=== PATIENT | female | born 2000 | race Caucasian/White ===

== ENCOUNTER 2020-07-31 23:00 | Emergency (ER) | payer OTHER ==
--- NOTE | 2020-07-31 23:09 | ERPHSYRPT ---
- History of Present Illness Time Seen by Provider: 07/31/20 23:09 Source: patient Exam Limitations: no limitations Physician History: This is a 20-year-old white female who attempted to forte her own earlobes 5 days ago. They were left in place over the 5 days and infection set in. She took her piercings out prior to arrival to the emergency department. She denies fevers. She has no known drug allergies. Timing/Duration: gradual onset Severity: mild ENT Location: ear (R), ear (L) Prearrival Treatment: no prearrival treatment Modifying Factors: Improves With: nothing Associated Symptoms: ear pain (R) (Earlobe), ear pain (L) (Earlobe) Allergies/Adverse Reactions: No Known Drug Allergies Allergy (Verified 07/31/20 23:24) Travel Risk - International Travel Have you traveled outside of the country in past 3 weeks: No - Coronavirus Screening Are you exhibiting any of the following symptoms?: No Close contact with a COVID-19 positive Pt in past 14-21 Days: No - Vaccine Status Have you recieved a Covid-19 vaccination: No - Review of Systems Constitutional: No Symptoms Eyes: No Symptoms Ears, Nose, & Throat: No Symptoms Respiratory: No Symptoms Cardiac: No Symptoms Abdominal/Gastrointestinal: No Symptoms Genitourinary Symptoms: No Symptoms Musculoskeletal: No Symptoms Skin: Cellulitis (Lateral earlobes) Neurological: No Symptoms Psychological: No Symptoms Endocrine: No Symptoms Hematologic/Lymphatic: No Symptoms Immunological/Allergic: No Symptoms All Other Systems: Reviewed and Negative - Past Medical History Pertinent Past Medical History: Yes - Past Surgical History Past Surgical History: Yes - Physical Exam General Appearance: no apparent distress, alert, anxiety Eye Exam: bilateral eye: normal inspection, PERRL, EOMI Ear Exam: bilateral ear: swelling (Earlobe infection with swelling and tenderness), tenderness (See above) Nasal Exam: normal inspection Neck Exam: normal inspection, non-tender, supple, full range of motion, trachea midline Cardiovascular/Respiratory Exam: chest non-tender, no respiratory distress Abdominal Exam: non-tender Neurologic Exam: alert, oriented x 3, 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 See above) SpO2 Interpretation: normal O2 Delivery: Room Air - Course Nursing assessment & vital signs reviewed: Yes Ordered Tests: Medication Summary Generic Name Dose Route Start Last Admin Trade Name Barby PRN Reason Stop Dose Admin Ceftriaxone Sodium 1,000 mg 07/31/20 23:21 Rocephin 1000 Mg Inj IM 07/31/20 23:22 STAT ONE - Progress Progress: unchanged Counseled pt/family regarding: diagnosis, need for follow-up - Departure Departure Disposition: Home Clinical Impression: Cellulitis of both ears Condition: Stable Critical Care Time: No Additional Instructions: Keep sites clean daily with soap and water and once a day hydrogen peroxide. Do not place piercings in either ear for several weeks. Take medication as prescribed. Follow-up with your primary care physician for further management. Prescriptions: Smz/Tmp Ds Tablet [Bactrim Ds Tablet] 1 udtab PO BID #14 tablet
[2020-07-31] MEDS ORDERED: Rocephin 1000 MG INJ IM ONE (23:21)
[2020-07-31] MEDS ORDERED: Rocephin 1000 MG INJ ONE (23:23)
[2020-07-31] MEDS ORDERED: XYLOCAINE 1% HCL 20 ML MDV ONE (23:24)
[2020-07-31 23:51] VITALS: BP 114/75; PULSE 71; O2SAT 100
== END 2020-07-31 23:50 | disposition home or self-care (01) ==
LOC: ED 23:00
DX: H60.13 Cellulitis of external ear, bilateral (principal)
CPT/HCPCS: 96372; 99283; J0696

== ENCOUNTER 2020-10-17 10:37 | Emergency (ER) | payer OTHER ==
--- NOTE | 2020-10-17 10:39 | ERPHSYRPT ---
- History of Present Illness Time Seen by Provider: 10/17/20 10:39 Source: patient, family Exam Limitations: no limitations Physician History: This is a 20-year-old white female who does not smoke cigarettes and is not exposed to any type of cigarette smoke or other type of smoke on a chronic basis and presents with coughing and intermittent wheezing over the last one and half to 2 days. She also feels a little tickling in her throat. She has not had a fever. She had no nausea vomiting or diarrhea. She does complain of headache because she has been coughing relatively frequently over the last 2 days. Timing/Duration: day(s) (Two) Cough Quality/Degree: moderate, dry cough Possible Cause: no prior episodes Modifying Factors: Improves With: nothing Associated Symptoms: cough, headache, wheezing Allergies/Adverse Reactions: No Known Drug Allergies Allergy (Verified 10/17/20 11:08) Home Medications: norgestimate-ethinyl estradioL [Vlj-Fk-Fgnyqw Tablet] 1 each PO DAILY 10/17/20 [History] Hx Tetanus, Diphtheria Vaccination/Date Given: No Hx Influenza Vaccination/Date Given: No Hx Pneumococcal Vaccination/Date Given: No Travel Risk - International Travel Have you traveled outside of the country in past 3 weeks: No - Coronavirus Screening Are you exhibiting any of the following symptoms?: No Close contact with a COVID-19 positive Pt in past 14-21 Days: No - Vaccine Status Have you recieved a Covid-19 vaccination: No - Review of Systems Constitutional: No Symptoms Eyes: No Symptoms Ears, Nose, & Throat: No Symptoms Respiratory: Cough, Wheezing, No Dyspnea Cardiac: No Symptoms Abdominal/Gastrointestinal: No Symptoms Genitourinary Symptoms: No Symptoms Musculoskeletal: No Symptoms Skin: No Symptoms Neurological: Headache Psychological: No Symptoms Endocrine: No Symptoms Hematologic/Lymphatic: No Symptoms Immunological/Allergic: No Symptoms All Other Systems: Reviewed and Negative - Past Medical History Pertinent Past Medical History: Yes - Past Surgical History Past Surgical History: Yes - Social History Smoking Status: Never smoker Exposure to second hand smoke: No Drug Use: none Patient Lives Alone: No - Nursing Vital Signs Nursing Vital Signs: Initial Vital Signs Temperature 97.8 F 10/17/20 10:57 Pulse Rate 80 10/17/20 10:57 Respiratory Rate 18 10/17/20 10:57 Blood Pressure 111/67 10/17/20 10:57 O2 Sat by Pulse Oximetry 97 10/17/20 10:57 Pain Scale Pain Intensity 7 - Physical Exam General Appearance: no apparent distress, alert, anxiety, obese Eye Exam: PERRL/EOMI, eyes nml inspection Ears, Nose, Throat Exam: normal ENT inspection, moist mucous membranes Neck Exam: normal inspection, non-tender, supple, full range of motion Respiratory Exam: normal breath sounds, lungs clear, airway intact, No chest tenderness, No respiratory distress Cardiovascular Exam: regular rate/rhythm, normal heart sounds, normal peripheral pulses Gastrointestinal/Abdomen Exam: soft, normal bowel sounds, No tenderness, No guarding Pelvic Exam: not done Rectal Exam: not done Back Exam: normal inspection, normal range of motion, No CVA tenderness, No vertebral tenderness Extremity Exam: normal inspection, normal range of motion, pelvis stable Neurologic Exam: alert, oriented x 3, 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, 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, normal mood/affect, nml cerebellar function, nml station & gait, sensation nml Skin Exam: normal color, warm, dry Lymphatic Exam: No adenopathy SpO2 Interpretation: normal O2 Delivery: Room Air - Course Nursing assessment & vital signs reviewed: Yes - Progress Progress: unchanged Air Movement: good Blood Culture(s) Obtained: No Antibiotics given: No Counseled pt/family regarding: diagnosis, need for follow-up - Departure Departure Disposition: Home Clinical Impression: Bronchitis Condition: Stable Critical Care Time: No Referrals: DOCTOR,NO FAMILY [Primary Care Provider] - Additional Instructions: Drink plenty of fluids. Avoid exposure to any type of smoke. Take your medication as prescribed. Follow-up with your primary care physician for persistent symptoms. Forms: Work/School Release Form Prescriptions: Hydrocodone/Acetaminophen [Hydrocodone-Acetamn 7.5-325/15] 10 ml PO Q8H PRN PRN #120 solution MDD 30 ml PRN Reason: Cough Prednisone 10 mg [Deltasone 10 mg] 10 mg PO TID #12 tablet Azithromycin 250 mg [Zithromax 250 MG TABLET] 250 mg PO ZPACK #6 tablet
[2020-10-17 10:59] VITALS: O2SAT 97
[2020-10-17 11:33] VITALS: BP 101/84; PULSE 84
== END 2020-10-17 11:33 | disposition home or self-care (01) ==
LOC: ED 10:37
DX: J40 Bronchitis, not specified as acute or chronic (principal); R05 Cough; R51.9 Headache, unspecified; R06.2 Wheezing
CPT/HCPCS: 99283

== ENCOUNTER 2022-01-26 18:08 | Emergency (ER) | payer OTHER ==
[2022-01-26 18:31] VITALS: BP 125/90
[2022-01-26 18:45] LABS: Appearance SLIGHTLY CLOUDY (CLEAR); Bilirubin NEGATIVE (NEGATIVE); Glucose NEGATIVE (NEGATIVE); Ketones NEGATIVE (NEGATIVE); Specific Gravity 1.025 (1.005-1.025)
[2022-01-26 18:46] LABS: Crystals Unidentified 25-50 /HPF (NEGATIVE); Dipstick done @ ? MAIN LAB; Epithelial Cells RARE /HPF (FEW); Mucus SLIGHT /HPF (NEGATIVE); Nitrite NEGATIVE (NEGATIVE); Protein,Urine Dip 30 (Negative); RBC SMALL Ery/ul (0-5); Urobilinogen 0.2 mg/dL (0-1); WBC 26-50 /HPF (0-5)
[2022-01-26 18:48] LABS: Amourphous Crystal FEW /HPF (NEGATIVE); Bacteria RARE /HPF (NEGATIVE)
[2022-01-26 18:51] LABS: Urine Cultured Indicated? YES
[2022-01-26] MEDS ORDERED: TORAdol 30 mg Injection IM ONE (19:20)
[2022-01-26] MEDS ORDERED: BACTRIM DS TABLET PO ONE ×2 (19:20→19:24)
[2022-01-26] MEDS ORDERED: TORAdol 30 mg Injection ONE (19:24)
--- NOTE | 2022-01-26 19:26 | ERPHSYRPT ---
- History of Present Illness Time Seen by Provider: 01/26/22 18:16 Source: patient Exam Limitations: no limitations Patient Subjective Stated Complaint: pt reports burning with urination and frequency. pt states she also has lower back pain. Triage Nursing Assessment: pt is aox3, pupils perrl, afebrile, resps easy and non labored, cap refill < 3 seconds, radial pulses strong and equal, pt skin pink warm dry. Timing/Duration: day(s) (3), gradual onset, worse Activites at Onset: none Quality: sharpness Onset Location: suprapubic, urethral Pain Radiation: urethral Severity of Pain-Max: moderate Severity of Pain-Current: moderate Modifying Factors: Worsens With: urinating Associated Symptoms: dysuria, urinary frequency Allergies/Adverse Reactions: No Known Drug Allergies Allergy (Verified 01/26/22 18:31) Home Medications: norgestimate-ethinyl estradioL [Nyf-Nh-Qgspsp Tablet] 1 each PO DAILY 10/17/20 [History] Hx Tetanus, Diphtheria Vaccination/Date Given: Yes Hx Influenza Vaccination/Date Given: No Hx Pneumococcal Vaccination/Date Given: No Travel Risk - International Travel Have you traveled outside of the country in past 3 weeks: No - Coronavirus Screening Are you exhibiting any of the following symptoms?: No Close contact with a COVID-19 positive Pt in past 14-21 Days: No - Vaccine Status Have you recieved a Covid-19 vaccination: Yes 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[employer] - Vaccination Dates Date of 2cond Vaccination (if applicable): UNK - Review of Systems Constitutional: No Symptoms Eyes: No Symptoms Respiratory: No Symptoms Cardiac: No Symptoms Abdominal/Gastrointestinal: No Symptoms Genitourinary Symptoms: Dysuria, Frequency, Hematuria Musculoskeletal: Back Pain Skin: No Symptoms Neurological: No Symptoms Endocrine: No Symptoms Hematologic/Lymphatic: No Symptoms Immunological/Allergic: No Symptoms - Past Medical History Pertinent Past Medical History: Yes - Past Surgical History Past Surgical History: No - Social History Smoking Status: Never smoker Exposure to second hand smoke: No Drug Use: none Patient Lives Alone: No - Female History Hx Last Menstrual Period: 01/08/22 Hx Now: No (UNK) - Nursing Vital Signs Nursing Vital Signs: Initial Vital Signs Temperature 97.8 F 01/26/22 18:19 Pulse Rate 72 01/26/22 18:19 Respiratory Rate 18 01/26/22 18:19 Blood Pressure 125/90 01/26/22 18:19 O2 Sat by Pulse Oximetry 99 01/26/22 18:19 Pain Scale Pain Intensity 10 - Physical Exam General Appearance: no apparent distress, alert Eye Exam: PERRL/EOMI Ears, Nose, Throat Exam: normal ENT inspection Neck Exam: normal inspection, supple, full range of motion Respiratory Exam: normal breath sounds, lungs clear Cardiovascular Exam: regular rate/rhythm, normal heart sounds Gastrointestinal/Abdomen Exam: soft, normal bowel sounds, tenderness (mild suprapubic ) Back Exam: normal inspection, normal range of motion, No CVA tenderness Extremity Exam: normal inspection, normal range of motion Neurologic Exam: alert, oriented x 3, cooperative Skin Exam: normal color SpO2 Interpretation: normal SpO2: 99 O2 Delivery: Room Air Ordered Tests: Active Orders 24 hr Category Date Time Status CULTURE,URINE Stat Lab 01/26/22 18:35 Received HCG,QUALITATIVE URINE Stat Lab 01/26/22 19:01 Completed UA W/RFX CULTURE Stat Lab 01/26/22 18:35 Completed Lab/Rad Data: Laboratory Results 01/26/22 01/26/22 Range/Units 19:01 18:35 Urinalys Dipstick Clnc MAIN LAB Urine Color YELLOW (YELLOW) Urine Appearance SLIGHTLY CLOUDY (CLEAR) Urine pH 7.0 (5-6) Ur Specific Daisy 1.025 (1.005-1.025) POC Urine Protein Conf 30 (Negative) Urine Ketones NEGATIVE (NEGATIVE) Urine Nitrite NEGATIVE (NEGATIVE) Urine Bilirubin NEGATIVE (NEGATIVE) Urine Urobilinogen 0.2 (0-1) mg/dL Urine Leukocytes SMALL (NEGATIVE) Urine WBC (Auto) 26-50 (0-5) /HPF Urine RBC (Auto) 16-25 (0-2) /HPF U Epithel Cells (Auto) RARE (FEW) /HPF Urine Bacteria (Auto) RARE (NEGATIVE) /HPF Urine RBC SMALL (0-5) Rashaad/ul Unidentified Crystals 25-50 (NEGATIVE) /HPF Amorphous Crystals FEW (NEGATIVE) /HPF Urine Mucus (Auto) SLIGHT (NEGATIVE) /HPF Ur Culture Indicated? YES Urine Glucose NEGATIVE (NEGATIVE) mg/dL Urine HCG, Qual NEGATIVE (Negative) - Progress Progress: re-examined Air Movement: good Progress Note: 01/26/22 19:23 has UTI , started on bactrim , toradol for symptomatic relief . Blood Culture(s) Obtained: No Antibiotics given: No Counseled pt/family regarding: lab results, diagnosis, need for follow-up - Departure Departure Disposition: Home Clinical Impression: Acute UTI Condition: Stable Critical Care Time: No Referrals: DOCTOR,NO FAMILY [Primary Care Provider] - Follow up/PCP as directed EMIGDIO CHAPARRO DO [ACTIVE STAFF] - Follow up/PCP as directed (2 days for re evaluation ) Instructions: Urinary Tract Infection, Adult (DC) Additional Instructions: take tylenol/ibuprofen for re evaluation. return to ER for any worsening of symptoms like pain/fever /vomiting etc Prescriptions: Ibuprofen 600 mg PO Q6HPRN PRN 10 Days #20 tablet PRN Reason: Pain Smz/Tmp Ds Tablet [Bactrim Ds Tablet] 1 udtab PO BID #14 tablet
[2022-01-26 19:36] VITALS: PULSE 70; O2SAT 100
== END 2022-01-26 19:36 | disposition home or self-care (01) ==
LOC: ED 18:08
DX: N39.0 Urinary tract infection, site not specified (principal); M54.50 Low back pain, unspecified; Z79.899 Other long term (current) drug therapy
CPT/HCPCS: 81015; 81025; 87077; 87086; 87186; 96372; 99283; J1885; A9270-GY

== ENCOUNTER 2022-02-21 18:26 | Emergency (ER) | payer OTHER ==
[2022-02-21 18:40] VITALS: O2SAT 99
--- NOTE | 2022-02-21 19:01 | ERPHSYRPT ---
- History of Present Illness Time Seen by Provider: 02/21/22 18:43 Source: patient Exam Limitations: no limitations Patient Subjective Stated Complaint: C/O cough and sore throat that started yesterday Triage Nursing Assessment: Patient ambulated back to ED without difficulties. NO SOB noted. No cough noted during assessment. Lungs clear. Skin warm and dry. Throat is red. Physician History: 22 years old with history of tobacco use presented to ER with chief complaint of nonproductive cough for quite some time which is worsening since yesterday. At times she noted some soreness/dryness of throat and coughed up some streaks of blood. Reports dryness of throat and hurts to swallow at times as well. No difficulty breathing. No fever or chills reported. Not taking any control pills. No leg swelling. No history of DVT/PE. No chest pain or shortness of breath otherwise. Timing/Duration: yesterday, intermittent, worse Cough Quality/Degree: moderate, dry cough Possible Cause: unknown cause Modifying Factors: Worsens With: coughing Associated Symptoms: cough, muscle aches, nasal drainage, sore throat, No fever, No shortness of breath Allergies/Adverse Reactions: No Known Drug Allergies Allergy (Verified 02/21/22 18:30) Hx Tetanus, Diphtheria Vaccination/Date Given: Yes Hx Influenza Vaccination/Date Given: No Hx Pneumococcal Vaccination/Date Given: No Immunizations Up to Date: Yes Travel Risk - International Travel Have you traveled outside of the country in past 3 weeks: No - Coronavirus Screening Are you exhibiting any of the following symptoms?: Yes Symptoms: Cough: New Onset Close contact with a COVID-19 positive Pt in past 14-21 Days: No - Vaccine Status Have you recieved a Covid-19 vaccination: Yes 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[employer] - Vaccination Dates Date of 2cond Vaccination (if applicable): UNK - Review of Systems Constitutional: No Symptoms Eyes: No Symptoms Ears, Nose, & Throat: Throat Pain, Throat Swelling Respiratory: Cough Cardiac: No Symptoms Abdominal/Gastrointestinal: No Symptoms Genitourinary Symptoms: No Symptoms Musculoskeletal: No Symptoms Neurological: No Symptoms Endocrine: No Symptoms Hematologic/Lymphatic: No Symptoms - Past Medical History Pertinent Past Medical History: Yes Respiratory History: Bronchitis - Past Surgical History Past Surgical History: No - Social History Smoking Status: Never smoker Exposure to second hand smoke: No Drug Use: marijuana Patient Lives Alone: No - Female History Hx Last Menstrual Period: NOW Hx Now: No - Nursing Vital Signs Nursing Vital Signs: Initial Vital Signs Temperature 97.6 F 02/21/22 18:31 Pulse Rate 76 02/21/22 18:31 Respiratory Rate 18 02/21/22 18:31 Blood Pressure 115/81 02/21/22 18:31 O2 Sat by Pulse Oximetry 99 02/21/22 18:31 Pain Scale Pain Intensity 6 - Physical Exam General Appearance: no apparent distress, alert Eye Exam: PERRL/EOMI Ears, Nose, Throat Exam: pharyngeal erythema Neck Exam: normal inspection, non-tender, supple, full range of motion Respiratory Exam: normal breath sounds, lungs clear Cardiovascular Exam: regular rate/rhythm, normal heart sounds Back Exam: normal inspection Extremity Exam: normal inspection, normal range of motion Neurologic Exam: alert, oriented x 3, cooperative Skin Exam: normal color SpO2 Interpretation: normal SpO2: 99 O2 Delivery: Room Air Ordered Tests: Active Orders 24 hr Category Date Time Status CHEST 1 VIEW (PORTABLE) Stat Exams 02/21/22 19:08 Taken Lab/Rad Data: Laboratory Results 02/21/22 Range/Units 18:50 Influenza Type A Ag NEGATIVE (NEGATIVE) Influenza Type B Ag NEGATIVE (NEGATIVE) RSV (PCR) NEGATIVE (Negative) SARS-CoV-2 (PCR) NEGATIVE (NEGATIVE) Group A Strep Antibody NOT DETECTED (NEGATIVE) - Progress Progress: improved Air Movement: good Progress Note: 02/21/22 19:41 22 years old is evaluated for cough with sore throat and a tinge of blood streaking sputum which is minimal. Lungs bilateral clear to auscultation. Chest x-ray no acute cardiopulmonary findings reviewed by me, official report is pending. I believe patient has viral bronchitis, given a shot of steroid. Recommended Tylenol, [id number] cough syrup and outpatient follow-up. We will also give a short course of steroid to go home. Discussed signs symptoms of worsening needing return to ER which she seems understanding. Blood Culture(s) Obtained: No Antibiotics given: No Counseled pt/family regarding: lab results, diagnosis, rad results - Departure Departure Disposition: Home Clinical Impression: Bronchitis Condition: Stable Critical Care Time: No Referrals: DOCTOR,NO FAMILY [Primary Care Provider] - Follow up/PCP as directed SERENITY SKY MD [ACTIVE STAFF] - Follow Up with PCP/3 days Instructions: Cough, Adult (DC) Additional Instructions: Take Tylenol as needed. Follow-up with primary care for reevaluation. Return to ER for worsening cough or if develop fever chills etc. Prescriptions: Prednisone 20 mg [Deltasone 20 mg] 40 mg PO DAILY 5 Days #10 tablet
[2022-02-21 19:22] LABS: Group A Strep NOT DETECTED (NEGATIVE)
[2022-02-21 19:35] LABS: INFLUENZA A NEGATIVE (NEGATIVE); INFLUENZA B NEGATIVE (NEGATIVE); RESPIRATORY SYNCTIAL VIRUS NEGATIVE (Negative); SARS-CoV-2 Xpert Express NEGATIVE (NEGATIVE)
[2022-02-21 19:46] VITALS: BP 105/55; PULSE 72
--- NOTE | 2022-02-22 09:16 | XRAY ---
Indication: Cough. Comparison: None Single PA chest demonstrates normal heart and lungs with incidental tiny left base calcified granuloma. Bony thorax intact with minimal levoscoliosis.
== END 2022-02-21 19:51 | disposition home or self-care (01) ==
LOC: ED 18:26
DX: J20.8 Acute bronchitis due to other specified organisms (principal); R05.9 Cough, unspecified; J02.9 Acute pharyngitis, unspecified; Z79.52 Long term (current) use of systemic steroids
CPT/HCPCS: 0241U; 71045; 87651; 99283

== ENCOUNTER 2022-05-20 17:21 | Emergency (ER) | payer OTHER ==
[2022-05-20 18:23] LABS: Appearance Clear (Clear); Bacteria None Seen /HPF (None Seen); Bilirubin Negative (Negative); Blood Negative (Negative); Epithelial Cells None Seen /HPF (None Seen); Glucose, Urine Negative (Negative); Hyaline Casts NONE SEEN /LPF (0-2); Ketones Negative (Negative); Leukocyte Esterase Negative (Negative); Nitrite Negative (Negative); Ph 5.5 (4.6-8.0); Protein,Urine Dip Negative (Negative); RBC 0-2 /HPF (0-5); Urobilinogen 0.2 mg/dL (0.2); WBC 0-2 /HPF (0-5)
--- NOTE | 2022-05-20 18:24 | ERPHSYRPT ---
- History of Present Illness Time Seen by Provider: 05/20/22 17:50 Source: patient Exam Limitations: no limitations Patient Subjective Stated Complaint: pt here for lower abd pain for an hour ago after lifting 20lb boxes, she is 4 weeks Triage Nursing Assessment: pt alert, resp easy, face mask in place, skin w/d/p. abd soft Physician History: Patient is a 22-year-old female currently 4 weeks presents to emergency department for evaluation of lower abdominal pain. Patient states pain started while she was lifting 20 pound boxes. No blunt trauma. No falls. No fever. Pain described as an ache that is across her abdomen from the left lower to the right lower. No vaginal discharge. No bleeding. Symptoms are mild in intensity. No specific worsening improving factors. Patient states she is otherwise healthy. She voices no other complaints or concerns at this time. Patient declined a pelvic exam. Portions of this note were created with voice recognition technology. There may be grammatical, spelling, punctuation or sound alike errors Timing/Duration: today Severity: mild Modifying Factors: Improves With: nothing Associated Symptoms: denies symptoms Allergies/Adverse Reactions: No Known Drug Allergies Allergy (Verified 05/20/22 17:41) Home Medications: Pnv 119/Iron Fum/Folic Acid [ 19 Tablet] 1 each PO DAILY 05/20/22 [History] Hx Tetanus, Diphtheria Vaccination/Date Given: Yes Hx Influenza Vaccination/Date Given: No Hx Pneumococcal Vaccination/Date Given: No Immunizations Up to Date: Yes Travel Risk - International Travel Have you traveled outside of the country in past 3 weeks: No - Coronavirus Screening Are you exhibiting any of the following symptoms?: No - Vaccine Status Have you recieved a Covid-19 vaccination: Yes 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: [employer] - Vaccination Dates Date of 2cond Vaccination (if applicable): UNK - Review of Systems Constitutional: No Symptoms, No Fever, No Chills Eyes: No Symptoms Ears, Nose, & Throat: No Symptoms Respiratory: No Symptoms, No Cough, No Dyspnea Cardiac: No Symptoms, No Chest Pain, No Edema, No Syncope Abdominal/Gastrointestinal: No Symptoms, No Abdominal Pain, No Nausea, No Vomiting, No Diarrhea Genitourinary Symptoms: No Symptoms, No Dysuria Musculoskeletal: No Symptoms, No Back Pain, No Neck Pain Skin: No Symptoms, No Rash Neurological: No Symptoms, No Dizziness, No Focal Weakness, No Sensory Changes Psychological: No Symptoms Endocrine: No Symptoms Hematologic/Lymphatic: No Symptoms Immunological/Allergic: No Symptoms All Other Systems: Reviewed and Negative - Past Medical History Pertinent Past Medical History: No Respiratory History: Bronchitis - Past Surgical History Past Surgical History: No - Social History Smoking Status: Never smoker Exposure to second hand smoke: No Drug Use: none Patient Lives Alone: No - Female History Hx Last Menstrual Period: 04/02/23 Hx Now: Yes Gestational Age: ? - Nursing Vital Signs Nursing Vital Signs: Initial Vital Signs Temperature 97.6 F 05/20/22 17:40 Pulse Rate 93 H 05/20/22 17:40 Respiratory Rate 18 05/20/22 17:40 Blood Pressure 112/60 05/20/22 17:40 O2 Sat by Pulse Oximetry 98 05/20/22 17:40 Pain Scale Pain Intensity 5 - Physical Exam General Appearance: no apparent distress, alert Eye Exam: PERRL/EOMI, eyes nml inspection Ears, Nose, Throat Exam: normal ENT inspection, TMs normal, pharynx normal, moist mucous membranes Neck Exam: normal inspection, non-tender, supple, full range of motion Respiratory Exam: normal breath sounds, lungs clear, airway intact, No respiratory distress Cardiovascular Exam: regular rate/rhythm, normal heart sounds, normal peripheral pulses Gastrointestinal/Abdomen Exam: soft, normal bowel sounds, other (Mild tenderness across lower abdomen from left to right. No focal tenderness), No tenderness, No mass Back Exam: normal inspection, normal range of motion, No CVA tenderness, No vertebral tenderness Extremity Exam: normal inspection, normal range of motion, pelvis stable Neurologic Exam: alert, oriented x 3, cooperative, normal mood/affect, nml ce rebellar function, nml station & gait, sensation nml, No motor deficits Skin Exam: normal color, warm, dry, No rash Lymphatic Exam: No adenopathy SpO2 Interpretation: normal SpO2: 98 O2 Delivery: Room Air - Course Nursing assessment & vital signs reviewed: Yes - Radiology Ultrasound Exam OB Ultrasound: tele radiology report (5 weeks 1 day old gestational sac volume is 0.65. Gestational sac observed. No pole. Early .) Ordered Tests: Active Orders 24 hr Category Date Time Status OB LIMITED [US] Stat Exams 05/20/22 21:22 Taken CBC W DIFF Stat Lab 02/06/23 18:29 Completed CMP Stat Lab 05/20/22 18:29 Completed HCG, Quantitative (Inhouse) Stat Lab 05/20/22 18:29 Completed UA W/RFX UR CULTURE Stat Lab 05/20/22 18:11 Completed Medication Summary Discontinued Medications Generic Name Dose Route Start Last Admin Trade Name Barby PRN Reason Stop Dose Admin Acetaminophen 975 mg 05/20/22 20:00 05/20/22 20:19 Acetaminophen 325 Mg Tablet PO 05/20/22 20:01 975 mg STAT ONE Administration Acetaminophen Confirm 05/20/22 20:18 Acetaminophen 325 Mg Tablet Administered 05/20/22 20:19 Dose 975 mg .ROUTE .[employer] ONE Lab/Rad Data: Laboratory Result Diagrams 05/20/22 18:29 05/20/22 18:29 Laboratory Results 05/20/22 05/20/22 05/20/22 Range/Units 18:29 18:29 18:29 WBC 8.9 (4.0-10.5) x10^3/uL RBC 4.07 L (4.1-5.4) x10^6/uL Hgb 12.3 (12.0-16.0) g/dL Hct 37.2 (35-47) % MCV 91.4 (78-100) fL MCH 30.2 (26-32) pg MCHC 33.1 (32-36) g/dL RDW 11.9 (11.5-14.0) % Plt Count 192 (150-450) x10^3/uL MPV 11.1 H (7.5-11.0) fL Gran % 67.4 H (36.0-66.0) % Immature Gran % (Auto) 0.3 (0.00-0.4) % Nucleat RBC Rel Count 0.0 (0.00-0.1) % Eos # (Auto) 0.13 (0-0.5) x10^3/uL Immature Gran # (Auto) 0.03 (0.00-0.03) x10^3u/L Absolute Lymphs (auto) 2.14 (1.0-4.6) x10^3/uL Absolute Monos (auto) 0.55 (0.0-1.3) x10^3/uL Absolute Nucleated RBC 0.00 (0.00-0.01) x10^3u/L Lymphocytes % 24.0 (24.0-44.0) % Monocytes % 6.2 (0.0-12.0) % Eosinophils % 1.5 (0.00-5.0) % Basophils % 0.6 (0.0-0.4) % Absolute Granulocytes 6.02 (1.4-6.9) x10^3/uL Basophils # 0.05 (0-0.4) x10^3/uL Sodium 132 L (137-145) mmol/L Potassium 3.9 (3.5-5.1) mmol/L Chloride 102 (98-107) mmol/L Carbon Dioxide 26 (22-30) mmol/L Anion Gap 8.3 (5-15) MEQ/L BUN 14 (7-17) mg/dL Creatinine 0.59 (0.52-1.04) mg/dL Estimated GFR > 60.0 ML/MIN Glucose 89 (74-106) mg/dL Calcium 8.9 (8.4-10.2) mg/dL Total Bilirubin 0.30 (0.2-1.3) mg/dL AST 20 (14-36) U/L ALT 14 (0-35) U/L Alkaline Phosphatase 52 (38-126) U/L Serum Total Protein 7.4 (6.3-8.2) g/dL Albumin 4.2 (3.5-5.0) g/dL Beta HCG, Quant 5865.8 mIU/ml Urine Color (Yellow) Urine Appearance (Clear) Urine pH (4.6-8.0) Ur Specific [place] (1.005-1.030) Urine Protein (Negative) Urine Glucose (UA) (Negative) mg/dL Urine Ketones (Negative) Urine Blood (Negative) Urine Nitrite (Negative) Urine Bilirubin (Negative) Urine Urobilinogen (0.2) mg/dL Ur Leukocyte Esterase (Negative) U Hyaline Cast (Auto) (0-2) /LPF Urine Microscopic RBC (0-5) /HPF Urine Microscopic WBC (0-5) /HPF Ur Epithelial Cells (None Seen) /HPF Urine Bacteria (None Seen) /HPF Urine Culture Reflexed (NO) 05/20/22 Range/Units 18:11 WBC (4.0-10.5) x10^3/uL RBC (4.1-5.4) x10^6/uL Hgb (12.0-16.0) g/dL Hct (35-47) % MCV (78-100) fL MCH (26-32) pg MCHC (32-36) g/dL RDW (11.5-14.0) % Plt Count (150-450) x10^3/uL MPV (7.5-11.0) fL Gran % (36.0-66.0) % Immature Gran % (Auto) (0.00-0.4) % Nucleat RBC Rel Count (0.00-0.1) % Eos # (Auto) (0-0.5) x10^3/uL Immature Gran # (Auto) (0.00-0.03) x10^3u/L Absolute Lymphs (auto) (1.0-4.6) x10^3/uL Absolute Monos (auto) (0.0-1.3) x10^3/uL Absolute Nucleated RBC (0.00-0.01) x10^3u/L Lymphocytes % (24.0-44.0) % Monocytes % (0.0-12.0) % Eosinophils % (0.00-5.0) % Basophils % (0.0-0.4) % Absolute Granulocytes (1.4-6.9) x10^3/uL Basophils # (0-0.4) x10^3/uL Sodium (137-145) mmol/L Potassium (3.5-5.1) mmol/L Chloride (98-107) mmol/L Carbon Dioxide (22-30) mmol/L Anion Gap (5-15) MEQ/L BUN (7-17) mg/dL Creatinine (0.52-1.04) mg/dL Estimated GFR ML/MIN Glucose (74-106) mg/dL Calcium (8.4-10.2) mg/dL Total Bilirubin (0.2-1.3) mg/dL AST (14-36) U/L ALT (0-35) U/L Alkaline Phosphatase (38-126) U/L Serum Total Protein (6.3-8.2) g/dL Albumin (3.5-5.0) g/dL Beta HCG, Quant mIU/ml Urine Color Yellow (Yellow) Urine Appearance Clear (Clear) Urine pH 5.5 (4.6-8.0) Ur Specific [place] 1.020 (1.005-1.030) Urine Protein Negative (Negative) Urine Glucose (UA) Negative (Negative) mg/dL Urine Ketones Negative (Negative) Urine Blood Negative (Negative) Urine Nitrite Negative (Negative) Urine Bilirubin Negative (Negative) Urine Urobilinogen 0.2 (0.2) mg/dL Ur Leukocyte Esterase Negative (Negative) U Hyaline Cast (Auto) NONE SEEN (0-2) /LPF Urine Microscopic RBC 0-2 (0-5) /HPF Urine Microscopic WBC 0-2 (0-5) /HPF Ur Epithelial Cells None Seen (None Seen) /HPF Urine Bacteria None Seen (None Seen) /HPF Urine Culture Reflexed NO (NO) - Progress Progress: improved Progress Note: 05/20/22 22:50 Patient 22-year-old female presents to our ED with lower abdominal pain spanning across her abdomen. Patient is 4 weeks . Urinalysis negative. No UTI. Other labs ordered include CBC CMP. Chemistry shows a mildly low sodium of 132. No leukocytosis. Ultrasound shows a gestational sac with a yolk sac. No pole. Beta hCG is 5865. Patient reassessed. She feels well. No complaints. Patient states he is hungry and wants to go home. Findings and case discussed with Dr. Surinder Kearns who feels patient should be discharged home. He agrees with our plan. Patient understands to return to our ED if symptoms worsen. However in light of patient's physical activity at work patient's lower abdominal pain may be related to strain from lifting repetitively 20 pounds items. Patient has mild hyponatremia may be addressed with oral intake/regular meals. Repeat sodium/chemistry may be performed if clinically indicated. Patient's physical exam revealed vague lower abdominal tenderness. Patient's complaint was acute. Complexity problem is moderate. No significant comorbidities to complicate patient's presentation other than . Findings of testing ordered was used to formulate medical decision making. Patient received Tylenol for pain control. Tylenol resolved her pain. Patient wants to go home and states she is hungry. Patient discussed with Dr. Stanton. Patient agrees to follow-up with Dr. Mora within 48 hours for reevaluation. Level VM service provided was moderate. Complexity of the problem addressed was moderate. Complex of data reviewed as moderate. Risk of complication and or risk of morbidity/mortality of patient management is low. No critical care time. Patient served as an independent historian. Time spent during discharge was approximately 15 minutes. Portions of this note were created with voice recognition technology. There may be grammatical, spelling, punctuation or sound alike errors 05/20/22 22:54 Discussed with DrGabby: Angelina Will see patient in: office Counseled pt/family regarding: lab results, diagnosis - Departure Departure Disposition: Home Clinical Impression: Lower abdominal pain, Hyponatremia Condition: Stable Critical Care Time: No Referrals: DOCTOR,NO FAMILY [Primary Care Provider] - Follow up/PCP as directed SERGIO STANTON DO [ACTIVE STAFF] - Follow up/PCP as directed Additional Instructions: Discharge/Care Plan CARLTON NIXON was seen on 05/20/22 in the Emergency Room. The patient was counseled regarding Diagnosis,Lab results, Imaging studies, need for follow up and when to return to the Emergency Room. Prescriptions given: Discharge Note I have spoken with the patient and/or caregivers. I have explained the patient's condition, diagnosis and treatment plan based on the information available to me at this time. I have answered the patient's and/or caregiver's questions and addressed any concerns. The patient and/or caregivers have as good understanding of the patient's diagnosis, condition and treatment plan as can be expected at this point. The vital signs have been stable. The patient's condition is stable and appropriate for discharge from the emergency department. The patient will pursue further outpatient evaluation with the primary care physician or other designated or consulting physician as outlined in the discharge instructions. The patient and/or caregivers are agreeable to this plan of care and follow-up instructions have been explained in detail. The patient and/or caregivers have received these instruction. The patient/and or caregivers are aware that any significant change in condition or worsening of symptoms should prompt an immediate return to this or the closest emergency department or call 911.
[2022-05-20 18:31] LABS: Absolute Neutrophil Ct (ANC) 6.02 x10^3/uL (1.4-6.9); BASOPHIL % 0.6 % (0.0-0.4); Basophil (Absolute #) 0.05 x10^3/uL (0-0.4); Eosinophil % 1.5 % (0.00-5.0); Eosinophil (Absolute #) 0.13 x10^3/uL (0-0.5); Hematocrit 37.2 % (35-47); Hemoglobin 12.3 g/dL (12.0-16.0); IMMATURE GRAN # 0.03 x10^3u/L (0.00-0.03); IMMATURE GRAN % 0.3 % (0.00-0.4); Lymphocyte (Absolute #) 2.14 x10^3/uL (1.0-4.6); Mean Cell Volume 91.4 fL (78-100); Mean Corpuscular Hemoglobin 30.2 pg (26-32); Mean Corpuscular Hgb Concent. 33.1 g/dL (32-36); Mean Platelet Volume 11.1 fL (7.5-11.0); Monocyte (Absolute #) 0.55 x10^3/uL (0.0-1.3); Monocytes % 6.2 % (0.0-12.0); Neutrophil % 67.4 % (36.0-66.0); Platelet Count 192 x10^3/uL (150-450); Red Blood Count 4.07 x10^6/uL (4.1-5.4); Red Cell Distribution Width 11.9 % (11.5-14.0); White Blood Count 8.9 x10^3/uL (4.0-10.5)
[2022-05-20 18:48] LABS: ADD URINE CULTURE? NO (NO)
[2022-05-20 18:48] LABS: ALBUMIN 4.2 g/dL (3.5-5.0); ALKALINE PHOSPHATASE 52 U/L (38-126); ANION GAP 8.3 MEQ/L (5-15); BLOOD UREA NITROGEN 14 mg/dL (7-17); CHLORIDE 102 mmol/L (98-107); Calcium 8.9 mg/dL (8.4-10.2); Carbon Dioxide 26 mmol/L (22-30); Creatinine 1 0.59 mg/dL (0.52-1.04); EST GLOMERULAR FILTRATION RATE > 60.0 ML/MIN; Glucose 89 mg/dL (74-106); Potassium 3.9 mmol/L (3.5-5.1); SGOT/AST 20 U/L (14-36); SGPT/ALT 14 U/L (0-35); SODIUM 132 mmol/L (137-145); Total Protein 7.4 g/dL (6.3-8.2)
[2022-05-20] MEDS ORDERED: TYLENOL 325 MG PO ONE (20:00)
[2022-05-20] MEDS ORDERED: TYLENOL 325 MG ONE (20:18)
[2022-05-20 20:28] VITALS: BP 119/69; PULSE 80
[2022-05-20 20:41] VITALS: O2SAT 98
--- NOTE | 2022-05-21 08:35 | XRAY ---
Indication: Pain and cramping. viability. Limited transvaginal early OB ultrasound performed. Comparison: None Uterus demonstrates single intrauterine gestational sac measuring 0.65 cm corresponding to 5 weeks 1 day. No pole/heart tones presumed early . Lower uterine segment demonstrates tiny nabothian cysts, largest 3 mm. Correlate with serial beta-hCG and follow-up sonogram regarding viability. Comment: Preliminary report was given.
== END 2022-05-20 22:55 | disposition home or self-care (01) ==
LOC: ED 17:21
DX: R10.30 Lower abdominal pain, unspecified (principal); E87.1 Hypo-osmolality and hyponatremia; Z33.1 Pregnant state, incidental
CPT/HCPCS: 36415; 76815; 80053; 81001; 84702; 85025; 99283; A9270-GY

== ENCOUNTER 2022-06-15 19:24 | Emergency (ER) | payer OTHER ==
--- NOTE | 2022-06-15 19:27 | ERPHSYRPT ---
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 However the last 2 days she has noticed vomiting that is more frequent. She is unable to hold liquids down today and became a little dizzy. She does not have any abdominal pain. She denies fevers and chills. She denies diarrhea. She has not had any vaginal bleeding. Associated symptoms of sore throat, nasal congestion and cough. On 05/20/2022 the patient had a intrauterine single gestational sac. At that time she was 5 weeks . She is 8 weeks plus today. Timing/Duration: day(s), intermittent, worse Activites at Onset: none Quality: other (No pain) Pain Radiation: none Severity of Pain-Max: none Severity of Pain-Current: none Prior abdominal problems: none Sexual intercourse history: non-contributory Modifying Factors: Improves With: vomiting, other (Cough and sore throat) Associated Symptoms: nausea, vomiting, , No fever, No chills, No urinary frequency, No vaginal discharge Allergies/Adverse Reactions: No Known Drug Allergies Allergy (Verified 06/15/22 19:36) Home Medications: Pnv 119/Iron Fum/Folic Acid [ 19 Tablet] 1 each PO DAILY 05/20/22 [History] Hx Tetanus, Diphtheria Vaccination/Date Given: Yes Hx Influenza Vaccination/Date Given: No Hx Pneumococcal Vaccination/Date Given: No Travel Risk - International Travel Have you traveled outside of the country in past 3 weeks: No - Coronavirus Screening Are you exhibiting any of the following symptoms?: Yes Symptoms: Cough: New Onset, Vomiting/Diarrhea, Headaches/Body Aches/Fatigue - Vaccine Status Have you recieved a Covid-19 vaccination: Yes 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[employer] - Vaccination Dates Date of 2cond Vaccination (if applicable): UNK - Review of Systems Constitutional: No Symptoms Eyes: No Symptoms Ears, Nose, & Throat: Throat Pain Respiratory: Cough Cardiac: No Symptoms Abdominal/Gastrointestinal: Nausea, Vomiting, No Abdominal Pain, No Diarrhea Genitourinary Symptoms: No Symptoms, No Flank Pain, No Vaginal Bleeding, No Vaginal Discharge Musculoskeletal: Arthralgias, Myalgias Skin: No Symptoms Neurological: Dizziness, Headache Psychological: No Symptoms Endocrine: No Symptoms Hematologic/Lymphatic: Easy Bruising Immunological/Allergic: No Symptoms - Past Medical History Pertinent Past Medical History: No Respiratory History: Bronchitis - Past Surgical History Past Surgical History: No - Social History Smoking Status: Never smoker Exposure to second hand smoke: No Drug Use: none Patient Lives Alone: No - Nursing Vital Signs Nursing Vital Signs: Initial Vital Signs Temperature 98.8 F 06/15/22 19:37 Pulse Rate 92 H 06/15/22 19:37 Respiratory Rate 18 06/15/22 19:37 Blood Pressure 145/77 06/15/22 19:37 O2 Sat by Pulse Oximetry 98 06/15/22 19:37 Pain Scale Pain Intensity 3 - Physical Exam General Appearance: no apparent distress, alert, anxiety Eye Exam: PERRL/EOMI, eyes nml inspection Ears, Nose, Throat Exam: normal ENT inspection, moist mucous membranes Neck Exam: normal inspection, non-tender, supple, full range of motion Respiratory Exam: normal breath sounds, lungs clear, airway intact, No chest tenderness, No respiratory distress Cardiovascular Exam: regular rate/rhythm, normal heart sounds, normal peripheral pulses Gastrointestinal/Abdomen Exam: soft, normal bowel sounds, No tenderness Pelvic Exam: not done Rectal Exam: not done Back Exam: normal inspection, normal range of motion, No CVA tenderness, No vertebral tenderness Extremity Exam: normal inspection, normal range of motion, pelvis stable Neurologic Exam: alert, oriented x 3, cooperative, sports activities foul judge II-XII nml as tested, normal mood/affect, nml cerebellar function, nml station & gait, sensation nml Skin Exam: normal color, warm, dry Lymphatic Exam: No adenopathy SpO2 Interpretation: normal O2 Delivery: Room Air - Course Nursing assessment & vital signs reviewed: Yes Ordered Tests: Active Orders 24 hr Category Date Time Status IV Insertion STAT Care 06/15/22 19:53 Active BLOOD CULTURE Stat Lab 06/15/22 20:15 Received CBC W DIFF Stat Lab 06/15/22 20:14 Completed CMP Stat Lab 06/15/22 20:14 Completed CULTURE,URINE Stat Lab 06/15/22 19:55 Received HCG, Quantitative (Inhouse) Stat Lab 06/15/22 21:13 Ordered [place] Screen Stat Lab 06/15/22 20:14 Completed UA W/RFX UR CULTURE Stat Lab 06/15/22 19:55 Completed Medication Summary Generic Name Dose Route Start Last Admin Trade Name Barby PRN Reason Stop Dose Admin Sodium Chloride 500 mls @ 500 mls/hr 06/15/22 20:55 06/15/22 20:59 Sodium Chloride 0.9% 500 Ml IV 06/15/22 21:54 500 mls/hr .Q1H ONE Administration Discontinued Medications Generic Name Dose Route Start Last Admin Trade Name Barby PRN Reason Stop Dose Admin Sodium Chloride 1,000 mls @ 999 mls/hr 06/15/22 19:53 06/15/22 21:02 Sodium Chloride 0.9% 1000 Ml IV 06/15/22 20:53 Infused .Q1H1M STA Infusion Sodium Chloride Confirm 06/15/22 20:00 Sodium Chloride 0.9% 1000 Ml Administered 06/15/22 20:01 Dose 1,000 mls @ ud .ROUTE .[facility]K-[facility] ONE Sodium Chloride Confirm 06/15/22 20:59 Sodium Chloride 0.9% 500 Ml Administered 06/15/22 21:00 Dose 500 mls @ ud IV .STK-[facility] ONE Ondansetron HCl 4 mg 06/15/22 19:53 06/15/22 20:02 Ondansetron Hcl 4 Mg/2 Ml Vial IV 06/15/22 19:54 4 mg STAT ONE Administration Ondansetron HCl Confirm 06/15/22 20:00 Ondansetron Hcl 4 Mg/2 Ml Vial Administered 06/15/22 20:01 Dose 4 mg .ROUTE .[facility]K-[facility] ONE Lab/Rad Data: Laboratory Result Diagrams 06/15/22 20:14 06/15/22 20:14 Laboratory Results 06/15/22 06/15/22 06/15/22 Range/Units 20:15 20:15 20:14 WBC (4.0-10.5) x10^3/uL RBC (4.1-5.4) x10^6/uL Hgb (12.0-16.0) g/dL Hct (35-47) % MCV (78-100) fL MCH (26-32) pg MCHC (32-36) g/dL RDW (11.5-14.0) % Plt Count (150-450) x10^3/uL MPV (7.5-11.0) fL Gran % (36.0-66.0) % Immature Gran % (Auto) (0.00-0.4) % Nucleat RBC Rel Count (0.00-0.1) % Eos # (Auto) (0-0.5) x10^3/uL Immature Gran # (Auto) (0.00-0.03) x10^3u/L Absolute Lymphs (auto) (1.0-4.6) x10^3/uL Absolute Monos (auto) (0.0-1.3) x10^3/uL Absolute Nucleated RBC (0.00-0.01) x10^3u/L Lymphocytes % (24.0-44.0) % Monocytes % (0.0-12.0) % Eosinophils % (0.00-5.0) % Basophils % (0.0-0.4) % Absolute Granulocytes (1.4-6.9) x10^3/uL Basophils # (0-0.4) x10^3/uL Sodium (137-145) mmol/L Potassium (3.5-5.1) mmol/L Chloride (98-107) mmol/L Carbon Dioxide (22-30) mmol/L Anion Gap (5-15) MEQ/L BUN (7-17) mg/dL Creatinine (0.52-1.04) mg/dL Estimated GFR ML/MIN Glucose (74-106) mg/dL Calcium (8.4-10.2) mg/dL Total Bilirubin (0.2-1.3) mg/dL AST (14-36) U/L ALT (0-35) U/L Alkaline Phosphatase (38-126) U/L Serum Total Protein (6.3-8.2) g/dL Albumin (3.5-5.0) g/dL Urine Color (Yellow) Urine Appearance (Clear) Urine pH (4.6-8.0) Ur Specific [place] (1.005-1.030) Urine Protein (Negative) Urine Glucose (UA) (Negative) mg/dL Urine Ketones (Negative) Urine Blood (Negative) Urine Nitrite (Negative) Urine Bilirubin (Negative) Urine Urobilinogen (0.2) mg/dL Ur Leukocyte Esterase (Negative) U Hyaline Cast (Auto) (0-2) /LPF Urine Microscopic RBC (0-5) /HPF Urine Microscopic WBC (0-5) /HPF Ur Epithelial Cells (None Seen) /HPF Urine Bacteria (None Seen) /HPF Urine Culture Reflexed (NO) Monoscreen NEGATIVE (Negative) Influenza Type A Ag NEGATIVE (NEGATIVE) Influenza Type B Ag NEGATIVE (NEGATIVE) RSV (PCR) NEGATIVE (Negative) SARS-CoV-2 (PCR) NEGATIVE (NEGATIVE) Group A Strep Antibody NOT DETECTED (NEGATIVE) 06/15/22 06/15/22 06/15/22 Range/Units 20:14 20:14 19:55 WBC 5.3 (4.0-10.5) x10^3/uL RBC 3.89 L (4.1-5.4) x10^6/uL Hgb 11.9 L (12.0-16.0) g/dL Hct 35.2 (35-47) % MCV 90.5 (78-100) fL MCH 30.6 (26-32) pg MCHC 33.8 (32-36) g/dL RDW 12.2 (11.5-14.0) % Plt Count 161 (150-450) x10^3/uL MPV 11.0 (7.5-11.0) fL Gran % 62.5 (36.0-66.0) % Immature Gran % (Auto) 0.4 (0.00-0.4) % Nucleat RBC Rel Count 0.0 (0.00-0.1) % Eos # (Auto) 0.06 (0-0.5) x10^3/uL Immature Gran # (Auto) 0.02 (0.00-0.03) x10^3u/L Absolute Lymphs (auto) 1.29 (1.0-4.6) x10^3/uL Absolute Monos (auto) 0.60 (0.0-1.3) x10^3/uL Absolute Nucleated RBC 0.00 (0.00-0.01) x10^3u/L Lymphocytes % 24.3 (24.0-44.0) % Monocytes % 11.3 (0.0-12.0) % Eosinophils % 1.1 (0.00-5.0) % Basophils % 0.4 (0.0-0.4) % Absolute Granulocytes 3.32 (1.4-6.9) x10^3/uL Basophils # 0.02 (0-0.4) x10^3/uL Sodium 138 (137-145) mmol/L Potassium 3.7 (3.5-5.1) mmol/L Chloride 105 (98-107) mmol/L Carbon Dioxide 25 (22-30) mmol/L Anion Gap 11.5 (5-15) MEQ/L BUN 9 (7-17) mg/dL Creatinine 0.44 L (0.52-1.04) mg/dL Estimated GFR > 60.0 ML/MIN Glucose 102 (74-106) mg/dL Calcium 8.7 (8.4-10.2) mg/dL Total Bilirubin 0.30 (0.2-1.3) mg/dL AST 19 (14-36) U/L ALT 12 (0-35) U/L Alkaline Phosphatase 59 (38-126) U/L Serum Total Protein 7.3 (6.3-8.2) g/dL Albumin 4.0 (3.5-5.0) g/dL Urine Color Yellow (Yellow) Urine Appearance Cloudy A (Clear) Urine pH 6.0 (4.6-8.0) Ur Specific [place] 1.025 (1.005-1.030) Urine Protein Negative (Negative) Urine Glucose (UA) Negative (Negative) mg/dL Urine Ketones Negative (Negative) Urine Blood Negative (Negative) Urine Nitrite Negative (Negative) Urine Bilirubin Negative (Negative) Urine Urobilinogen 1.0 A (0.2) mg/dL Ur Leukocyte Esterase Negative (Negative) U Hyaline Cast (Auto) 3-5 A (0-2) /LPF Urine Microscopic RBC 6-10 A (0-5) /HPF Urine Microscopic WBC 6-10 A (0-5) /HPF Ur Epithelial Cells Moderate A (None Seen) /HPF Urine Bacteria Many A (None Seen) /HPF Urine Culture Reflexed YES (NO) Monoscreen (Negative) Influenza Type A Ag (NEGATIVE) Influenza Type B Ag (NEGATIVE) RSV (PCR) (Negative) SARS-CoV-2 (PCR) (NEGATIVE) Group A Strep Antibody (NEGATIVE) Medical Desision Making - Discussion of managment Reviewed:: Test results Agreed on:: Treatment plan, need for follow-up - Diagnostic Testing Diagnostic test were ordered, analyzed, and reviewed by me: Yes - Risk of complications Low Risk: Low risk of morbidity from additional dx testing or treatment The pt has a mod risk of morbidity or mortality based on: Need for prescription drug management - Departure Departure Disposition: Home Clinical Impression: Vomiting during Condition: Stable Critical Care Time: No Referrals: SERGIO STANTON DO [Primary Care Provider] - Follow up/PCP as directed Additional Instructions: Drink plenty of clear liquids. Use the Zofran as prescribed. 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 Prescriptions: Ondansetron ODT 4 MG [Zofran Odt 4 mg] 4 mg PO Q6H PRN PRN #10 tablet PRN Reason: Vomiting
[2022-06-15] MEDS ORDERED: Sodium Chloride 0.9% 1000 ML 1,000 ML IV STA (19:53)
[2022-06-15] MEDS ORDERED: Zofran 4 MG/2 ML VIAL IV ONE (19:53)
[2022-06-15] MEDS ORDERED: Sodium Chloride 0.9% 1000 ML 1,000 ML ONE (20:00)
[2022-06-15] MEDS ORDERED: Zofran 4 MG/2 ML VIAL ONE (20:00)
[2022-06-15 20:18] LABS: Absolute Neutrophil Ct (ANC) 3.32 x10^3/uL (1.4-6.9); BASOPHIL % 0.4 % (0.0-0.4); Basophil (Absolute #) 0.02 x10^3/uL (0-0.4); Eosinophil % 1.1 % (0.00-5.0); Eosinophil (Absolute #) 0.06 x10^3/uL (0-0.5); Hematocrit 35.2 % (35-47); Hemoglobin 11.9 g/dL (12.0-16.0); IMMATURE GRAN # 0.02 x10^3u/L (0.00-0.03); IMMATURE GRAN % 0.4 % (0.00-0.4); Lymphocyte (Absolute #) 1.29 x10^3/uL (1.0-4.6); Lymphocytes % 24.3 % (24.0-44.0); Mean Cell Volume 90.5 fL (78-100); Mean Corpuscular Hemoglobin 30.6 pg (26-32); Mean Corpuscular Hgb Concent. 33.8 g/dL (32-36); Monocytes % 11.3 % (0.0-12.0); Neutrophil % 62.5 % (36.0-66.0); Platelet Count 161 x10^3/uL (150-450); Red Blood Count 3.89 x10^6/uL (4.1-5.4); Red Cell Distribution Width 12.2 % (11.5-14.0); White Blood Count 5.3 x10^3/uL (4.0-10.5)
[2022-06-15 20:21] LABS: Appearance Cloudy (Clear); Bacteria Many /HPF (None Seen); Bilirubin Negative (Negative); Blood Negative (Negative); Epithelial Cells Moderate /HPF (None Seen); Glucose, Urine Negative (Negative); Ketones Negative (Negative); Leukocyte Esterase Negative (Negative); Nitrite Negative (Negative); Protein,Urine Dip Negative (Negative); Specific Gravity 1.025 (1.005-1.030)
[2022-06-15 20:22] LABS: ADD URINE CULTURE? YES (NO)
[2022-06-15 20:31] LABS: ALKALINE PHOSPHATASE 59 U/L (38-126); ANION GAP 11.5 MEQ/L (5-15); BLOOD UREA NITROGEN 9 mg/dL (7-17); CHLORIDE 105 mmol/L (98-107); Calcium 8.7 mg/dL (8.4-10.2); Carbon Dioxide 25 mmol/L (22-30); Creatinine 1 0.44 mg/dL (0.52-1.04); EST GLOMERULAR FILTRATION RATE > 60.0 ML/MIN; Glucose 102 mg/dL (74-106); Potassium 3.7 mmol/L (3.5-5.1); SGOT/AST 19 U/L (14-36); SGPT/ALT 12 U/L (0-35); SODIUM 138 mmol/L (137-145); Total Protein 7.3 g/dL (6.3-8.2)
[2022-06-15] MEDS ORDERED: Sodium Chloride 0.9% 500 ML 500 ML IV ONE ×2 (20:55→20:59)
[2022-06-15 20:56] LABS: INFLUENZA A NEGATIVE (NEGATIVE); INFLUENZA B NEGATIVE (NEGATIVE); RESPIRATORY SYNCTIAL VIRUS NEGATIVE (Negative); SARS-CoV-2 Xpert Express NEGATIVE (NEGATIVE)
[2022-06-15 21:33] VITALS: BP 103/68; PULSE 73; O2SAT 98
== END 2022-06-15 21:39 | disposition home or self-care (01) ==
LOC: ED 19:24
DX: O21.9 Vomiting of pregnancy, unspecified (principal); Z3A.08 8 weeks gestation of pregnancy; J02.9 Acute pharyngitis, unspecified; R09.81 Nasal congestion; R05.9 Cough, unspecified
CPT/HCPCS: 0241U; 36000; 36415; 80053; 81001; 84702; 85025; 86308; 87040; 87086; 87651; 96374; 99284; J2405

== ENCOUNTER 2022-10-30 19:42 | Observation (INO) | payer OTHER, MEDICAID ==
[2022-10-30 20:28] LABS: Appearance Clear (Clear); Bilirubin Negative (Negative); Blood Negative (Negative); Glucose, Urine Negative (Negative); Ketones Negative (Negative); Leukocyte Esterase Negative (Negative); Nitrite Negative (Negative); Ph 6.5 (4.6-8.0); Protein,Urine Dip Negative (Negative)
[2022-10-30 20:29] VITALS: BP 113/77; PULSE 106; O2SAT 97
[2022-10-30 20:29] LABS: Bacteria Few /HPF (None Seen); Epithelial Cells Few /HPF (None Seen); Hyaline Casts NONE SEEN /LPF (0-2)
[2022-10-30 20:30] LABS: ADD URINE CULTURE? NO (NO)
[2022-10-30 20:36] LABS: Amphetamine,Urine NEGATIVE (NEGATIVE); Barbiturate,Urine NEGATIVE (NEGATIVE); Benzodiazepine,Urine NEGATIVE (NEGATIVE); Cocaine,Urine NEGATIVE (NEGATIVE); Methadone,Urine NEGATIVE (NEGATIVE); Opiate,Urine NEGATIVE (NEGATIVE); PCP,Urine NEGATIVE (NEGATIVE); THC,Urine NEGATIVE (NEGATIVE)
== END 2022-10-30 22:00 | disposition home or self-care (01) ==
LOC: OB 19:42
PROVIDERS: ADMIT Obstetrics & Gynecology; ATTEND Obstetrics & Gynecology
DX: Z34.02 Encounter for supervision of normal first pregnancy, second trimester (principal); Z3A.28 28 weeks gestation of pregnancy
CPT/HCPCS: 80307; 81001; G0378; G0379

== ENCOUNTER 2023-01-19 09:15 | Inpatient (IN) | payer OTHER, MEDICAID ==
[2023-01-19] MEDS ORDERED: TYLENOL EXTRA STRENGTH 500 MG PO PRN (13:51)
[2023-01-19] MEDS ORDERED: Zofran 4 MG/2 ML VIAL IV PRN (13:51)
[2023-01-19] MEDS ORDERED: PITOCIN 30 UNITS/ LR 500 ML 30 UNITS/500 ML PLAST..BAG IV SCH (14:00)
[2023-01-19 14:21] LABS: Absolute Neutrophil Ct (ANC) 7.22 x10^3/uL (1.4-6.9); BASOPHIL % 0.3 % (0.0-0.4); Basophil (Absolute #) 0.03 x10^3/uL (0-0.4); Eosinophil % 1.2 % (0.00-5.0); Eosinophil (Absolute #) 0.12 x10^3/uL (0-0.5); Hematocrit 34.3 % (35-47); Hemoglobin 11.6 g/dL (12.0-16.0); IMMATURE GRAN # 0.06 x10^3u/L (0.00-0.03); IMMATURE GRAN % 0.6 % (0.00-0.4); Lymphocyte (Absolute #) 2.06 x10^3/uL (1.0-4.6); Lymphocytes % 20.2 % (24.0-44.0); Mean Cell Volume 88.9 fL (78-100); Mean Corpuscular Hemoglobin 30.1 pg (26-32); Mean Corpuscular Hgb Concent. 33.8 g/dL (32-36); Mean Platelet Volume 11.8 fL (7.5-11.0); Monocytes % 6.9 % (0.0-12.0); Neutrophil % 70.8 % (36.0-66.0); Platelet Count 193 x10^3/uL (150-450); Red Blood Count 3.86 x10^6/uL (4.1-5.4); Red Cell Distribution Width 12.6 % (11.5-14.0); White Blood Count 10.2 x10^3/uL (4.0-10.5)
[2023-01-19] MEDS: CYTOTEC PO SCH ×5 (14:28→22:32)
[2023-01-19 14:40] LABS: Amphetamine,Urine NEGATIVE (NEGATIVE); Barbiturate,Urine NEGATIVE (NEGATIVE); Benzodiazepine,Urine NEGATIVE (NEGATIVE); Cocaine,Urine NEGATIVE (NEGATIVE); Methadone,Urine NEGATIVE (NEGATIVE); Opiate,Urine NEGATIVE (NEGATIVE); PCP,Urine NEGATIVE (NEGATIVE); THC,Urine NEGATIVE (NEGATIVE)
[2023-01-19 15:05] LABS: ABO TYPING A; Antibody Screen NEGATIVE (NEGATIVE); RH TYPING POSITIVE
[2023-01-19] MEDS: Lactated Ringers 1,000 ML IV SCH ×2 (19:34→20:06)
[2023-01-19] MEDS: Nubain 10 MG/ML IV ONE (20:13)
[2023-01-20] MEDS: CYTOTEC PO SCH ×2 (00:30→02:29)
[2023-01-20] MEDS: Nubain 10 MG/ML IV ONE (01:26)
[2023-01-20] MEDS: Lactated Ringers 1,000 ML IV SCH ×2 (04:41→10:13)
[2023-01-20] MEDS: PITOCIN 30 UNITS/ LR 500 ML 30 UNITS/500 ML PLAST..BAG IV SCH ×3 (05:00→06:45)
[2023-01-20] MEDS ORDERED: BRETHINE 1 MG/ML SQ PRN (05:11)
[2023-01-20] MEDS ORDERED: Ephedrine Sulfate 50 MG/ML IV PRN (07:41)
[2023-01-20] MEDS ORDERED: FENTANYL 2 MCG-BUPIV 0.125%-NS 250 ML Epidur 250 ML EPIDURAL SCH (07:45)
[2023-01-20] MEDS: Lactated Ringers 1,000 ML IV ONE ×2 (07:46→16:17)
[2023-01-20] MEDS ORDERED: BENADRYL 50 MG/ML IV PRN (15:28)
[2023-01-20] MEDS ORDERED: CLARITIN 10 MG PO PRN (15:28)
[2023-01-20] MEDS ORDERED: Narcan 0.4 MG/ML IV PRN (15:28)
[2023-01-20] MEDS ORDERED: Zofran 4 MG/2 ML VIAL IV PRN (15:28)
[2023-01-20] MEDS ORDERED: Nubain 10 MG/ML IV PRN (15:28)
[2023-01-20] MEDS ORDERED: HOLD NARCOTIC ANALGESICS AND SEDATIVES X24 HR MC PRN (15:28)
[2023-01-20] MEDS ORDERED: SOD CITRATE-CITRIC ACID SOLN PO SCH (15:30)
[2023-01-20] MEDS ORDERED: Pepcid 20 MG VIAL IV SCH (15:30)
[2023-01-20] MEDS ORDERED: CEFAZOLIN 2 GM-D5W BAG** 2 GM/50 ML ML IV SCH (15:30)
[2023-01-20] MEDS ORDERED: Reglan 10 MG/2 ML IV SCH (15:30)
[2023-01-20] MEDS ORDERED: PHENYLEPHRINE HCL ONE (16:27)
[2023-01-20] MEDS ORDERED: XYLOCAINE 2%/Epi 1:200000 20ML VIAL MPF ONE (16:27)
[2023-01-20] MEDS ORDERED: Pitocin 10 UNITS/ML ONE ×2 (16:27→17:45)
[2023-01-20] MEDS ORDERED: SUBLIMAZE 100 MCG/2 ML ONE ×2 (16:28→17:09)
[2023-01-20] MEDS ORDERED: Sensorcaine 0.25% 10 ML ONE (16:31)
[2023-01-20] MEDS ORDERED: OFIRMEV 100 ML IV ONE (16:31)
[2023-01-20] MEDS: Zithromax 500 MG/ 250 ML NaCl Premix 500 MG/250 ML IVPB IV ONE ×2 (16:36→17:51)
[2023-01-20] MEDS ORDERED: Lactated Ringers 1,000 ML IV ONE (16:36)
[2023-01-20 16:51] LABS: INR 0.89 (0.8-3.0); PROTIME 9.8 SECONDS (9.4-12.5); PTT 26.5 SECONDS (25.1-36.5)
[2023-01-20] MEDS ORDERED: EXPAREL 133 MG/10 ML VIAL IJ ONE (16:57)
[2023-01-20] MEDS ORDERED: Astramorph-Pf 5 MG/10 ML ONE (17:07)
[2023-01-21] MEDS: CEFAZOLIN 2 GM-D5W BAG** 2 GM/50 ML ML IV SCH ×2 (00:28→08:17)
[2023-01-21] MEDS: PERCOCET TABLET 5/325MG PO PRN ×4 (00:46→14:11)
[2023-01-21] MEDS: Dextrose 5%-Lr IV Solution 1000 ML 1,000 ML IV SCH ×4 (04:00→19:34)
[2023-01-21 04:53] LABS: Absolute Neutrophil Ct (ANC) 8.31 x10^3/uL (1.4-6.9); BASOPHIL % 0.3 % (0.0-0.4); Basophil (Absolute #) 0.04 x10^3/uL (0-0.4); Eosinophil % 1.1 % (0.00-5.0); Eosinophil (Absolute #) 0.13 x10^3/uL (0-0.5); Hematocrit 26.1 % (35-47); Hemoglobin 8.4 g/dL (12.0-16.0); IMMATURE GRAN # 0.05 x10^3u/L (0.00-0.03); IMMATURE GRAN % 0.4 % (0.00-0.4); Lymphocyte (Absolute #) 2.28 x10^3/uL (1.0-4.6); Lymphocytes % 19.3 % (24.0-44.0); Mean Cell Volume 90.9 fL (78-100); Mean Corpuscular Hemoglobin 29.3 pg (26-32); Mean Corpuscular Hgb Concent. 32.2 g/dL (32-36); Mean Platelet Volume 11.4 fL (7.5-11.0); Monocyte (Absolute #) 1.01 x10^3/uL (0.0-1.3); Monocytes % 8.5 % (0.0-12.0); Neutrophil % 70.4 % (36.0-66.0); Platelet Count 151 x10^3/uL (150-450); Red Blood Count 2.87 x10^6/uL (4.1-5.4); Red Cell Distribution Width 12.7 % (11.5-14.0); White Blood Count 11.8 x10^3/uL (4.0-10.5)
[2023-01-21] MEDS ORDERED: LANSINOH 40 GM TOP PRN (07:51)
[2023-01-21] MEDS ORDERED: Dulcolax 10 MG SUPP PR PRN (07:51)
[2023-01-21] MEDS ORDERED: Ambien 10 MG PO PRN (07:51)
[2023-01-21] MEDS ORDERED: Anucort-HC SUPPOSITORY PR PRN (07:51)
[2023-01-21] MEDS ORDERED: Mylicon 80MG PO PRN (07:51)
[2023-01-21] MEDS ORDERED: Adacel Vial IM ONE (07:51)
[2023-01-21] MEDS ORDERED: CORTISONE 1% CREAM TP PRN (07:51)
--- NOTE | 2023-01-21 08:22 | PCM.NOTE ---
Date and Time: 01/21/23819 Subjective Assessment: pod 1 sp csection pt resting in bed able to ambulate and tolerate diet vss afebrile abd; soft incision with dressing intact with no soilage uterus; firm lochia; mild hgb;8.4 a/p sp csection pod 1 with postop anemia will increase iron supplementation to tid anticipate discharge tomorrow Objective Exam Wound Assessment: Skin/Wound Assessment Wound/Incision Assessment Start: 01/20/23 20:39 Text: Status: Active Freq: Q6H Protocol: Document 01/21/23 04:00 (Rec: 01/21/23 05:06 [id number]) Wound/Incision Assessment Lower Abdomen Wound Assessment Shift Assessment Wound Type Incision Dressing Status Dry & Intact Drainage Amount None Drainage Odor None/Absent Comment incision covered per dressing Wound Photo Photo Taken No Comment: na OBJECTIVE DATA Vital Signs: Vital Signs - 24 hr Temp Pulse Resp BP BP BP Pulse Ox 01/21/23 06:00 99 01/21/23 05:00 95 01/21/23 04:00 98.7 F 89 20 110/51 96 01/21/23 03:00 98 01/21/23 01:00 99 01/21/23 00:59 99.7 F 110 H 20 105/57 99 01/21/23 00:00 99 01/20/23 22:15 99.3 F 98 H 20 101/56 98 01/20/23 21:15 99.8 F 101 H 20 111/53 97 01/20/23 20:15 99.3 F 88 18 100/50 96 01/20/23 19:15 99.5 F 85 18 102/55 98 01/20/23 19:00 98.7 F 89 18 112/70 99 01/20/23 18:52 99 01/20/23 18:45 98.7 F 95 H 18 109/74 98 01/20/23 18:30 98.7 F 86 18 106/56 98 01/20/23 17:53 99.3 F 87 18 115/52 115/52 98 01/20/23 16:30 98.8 F 92 H 18 111/61 99 01/20/23 16:15 98.8 F 82 18 111/61 99 01/20/23 16:09 98.8 F 102 H 18 99/53 95 01/20/23 16:00 98.8 F 76 18 99 01/20/23 15:45 98.8 F 102 H 18 103/53 95 01/20/23 15:30 98.8 F 102 H 18 103/53 95 01/20/23 15:15 98.8 F 97 H 18 106/55 98 01/20/23 15:00 98.8 F 106 H 18 103/53 98 01/20/23 14:42 98.8 F 81 18 103/53 98 01/20/23 14:30 98.8 F 103 H 18 96/55 98 01/20/23 14:15 98.8 F 98 H 18 104/56 98 01/20/23 14:00 98.8 F 97 H 18 104/56 98 01/20/23 13:45 98.8 F 92 H 18 104/56 100 01/20/23 13:30 98.8 F 99 H 18 122/68 98 01/20/23 13:15 98.8 F 98 H 18 113/66 100 01/20/23 13:00 98.8 F 81 18 113/66 97 01/20/23 12:45 98.8 F 83 18 111/65 97 01/20/23 12:30 98.8 F 93 H 18 103/59 97 01/20/23 12:15 98 F 102 H 18 120/67 98 01/20/23 12:00 98 F 93 H 18 132/71 98 01/20/23 11:45 98 F 97 H 18 132/71 98 01/20/23 11:28 98 F 91 H 18 115/65 100 01/20/23 11:15 98 F 91 H 18 115/65 100 01/20/23 11:00 98 F 91 H 18 100 01/20/23 10:45 98 F 94 H 18 120/57 100 01/20/23 10:30 98 F 18 100 01/20/23 10:00 98 F 96 H 18 143/78 100 01/20/23 09:45 98 F 96 H 18 134/83 100 01/20/23 09:30 98 F 123 H 18 144/91 100 01/20/23 09:15 98 F 110 H 18 132/82 100 01/20/23 09:00 98 F 84 18 122/68 100 01/20/23 08:45 98 F 84 18 102/63 99 01/20/23 08:27 98 F 84 18 99/57 99 Pain Assessment - Last Documented Pain Intensity [Lower 8 Posterior] Pain Intensity 5 Pain Scale Used 0-10 Pain Scale Intake and Output: Intake & Output 01/18/23 01/19/23 01/20/23 01/21/23 11:59 11:59 11:59 11:59 Intake Total 250 2837 6800 Output Total 1000 4256 Balance 250 1677 2544 Weight 107.048 kg 107.048 kg Lab Results: Lab Results-Last 24 Hours 01/20/23 01/21/23 Range/Units 16:30 04:47 WBC 11.8 H (4.0-10.5) x10^3/uL RBC 2.87 L (4.1-5.4) x10^6/uL Hgb 8.4 L D (12.0-16.0) g/dL Hct 26.1 L (35-47) % MCV 90.9 (78-100) fL MCH 29.3 (26-32) pg MCHC 32.2 (32-36) g/dL RDW 12.7 (11.5-14.0) % Plt Count 151 (150-450) x10^3/uL MPV 11.4 H (7.5-11.0) fL Gran % 70.4 H (36.0-66.0) % Immature Gran % (Auto) 0.4 (0.00-0.4) % Nucleat RBC Rel Count 0.0 (0.00-0.1) % Eos # (Auto) 0.13 (0-0.5) x10^3/uL Immature Gran # (Auto) 0.05 H (0.00-0.03) x10^3u/L Absolute Lymphs (auto) 2.28 (1.0-4.6) x10^3/uL Absolute Monos (auto) 1.01 (0.0-1.3) x10^3/uL Absolute Nucleated RBC 0.00 (0.00-0.01) x10^3u/L Lymphocytes % 19.3 L (24.0-44.0) % Monocytes % 8.5 (0.0-12.0) % Eosinophils % 1.1 (0.00-5.0) % Basophils % 0.3 (0.0-0.4) % Absolute Granulocytes 8.31 H (1.4-6.9) x10^3/uL Basophils # 0.04 (0-0.4) x10^3/uL PT 9.8 (9.4-12.5) SECONDS INR 0.89 (0.8-3.0) APTT 26.5 (25.1-36.5) SECONDS Multi-Disciplinary Progress Notes: Multi-Disciplinary Progress Notes 01/20/23 16:58 (created 01/20/23 17:23) Respiratory Note by Dodie Landrum Baby born via . Apgars at 1 minute is 9 and at 5 minutes is 9. No RT interventions needed at this time. Initialized on 01/20/23 17:23 - END OF NOTE Assessment/Plan (1) Arrest of descent, delivered, current hospitalization Current Visit: Yes Status: Acute Code(s): O62.1 - SECONDARY UTERINE INERTIA (2) Status post primary low transverse section Current Visit: Yes Status: Acute Code(s): Z98.891 - HISTORY OF UTERINE SCAR FROM PREVIOUS SURGERY (3) Postoperative anemia Current Visit: Yes Status: Acute Code(s): D64.9 - ANEMIA, UNSPECIFIED
[2023-01-21] MEDS ORDERED: FERREX 150 PO SCH (10:00)
[2023-01-21] MEDS ORDERED: ENOXAPARIN SODIUM SQ ONE (10:00)
[2023-01-21] MEDS: Docusate Sodium 100 MG PO SCH ×2 (10:24→21:02)
[2023-01-21] MEDS: FEOSOL 325 MG PO SCH ×3 (10:25→21:02)
[2023-01-21] MEDS: ECOTRIN 81 MG PO SCH (12:08)
[2023-01-21] MEDS: MOTRIN 400 MG PO PRN ×2 (12:09→17:21)
[2023-01-21 15:17] VITALS: RESP 18
[2023-01-21 15:55] LABS: Hematocrit 28.2 % (35-47); Hemoglobin 8.8 g/dL (12.0-16.0); Mean Cell Volume 95.6 fL (78-100); Mean Corpuscular Hemoglobin 29.8 pg (26-32); Mean Corpuscular Hgb Concent. 31.2 g/dL (32-36); Mean Platelet Volume 12.2 fL (7.5-11.0); Platelet Count 127 x10^3/uL (150-450); Red Blood Count 2.95 x10^6/uL (4.1-5.4); Red Cell Distribution Width 12.8 % (11.5-14.0); White Blood Count 10.9 x10^3/uL (4.0-10.5)
--- NOTE | 2023-01-21 16:52 | OP ---
SURGERY DATE: 01/20/2023 SURGERY TIME: 1638 PREOPERATIVE DIAGNOSIS: 1. INTRAUTERINE AT 39 WEEKS AND 4 DAYS GESTATION WITH ARRESTED DESCENT AND DILATATION. POSTOPERATIVE DIAGNOSIS: 1. INTRAUTERINE AT 39 WEEKS AND 4 DAYS GESTATION WITH ARRESTED DESCENT AND DILATATION. 2. MACROSOMIA. PROCEDURE: 1. Primary section, low flap transverse uterine incision, Pfannenstiel skin incision. SURGEON: Dr. Terrance Stanton. STRATEGIC SOURCING SPECIALIST: Terrie statistical technician. ANESTHESIA: Epidural. QUANTITATIVE BLOOD LOSS: 827 cc. COMPLICATIONS: None. FINDINGS: The risks, benefits, indications, and alternatives of the procedure were reviewed with the patient prior to the procedure. Patient understood the risk of infection, bleeding, bowel injury, bladder injury, pelvic infection, thromboembolic disorder associated with the surgery and desires to have the surgery as a possible means to alleviate her current medical condition. DESCRIPTION OF PROCEDURE: At this point, the patient was taken to the operating room where her epidural anesthesia was found to be adequate. She was then prepared and draped in the normal sterile fashion in the dorsal supine position with leftward tilt. A Pfannenstiel skin incision was made with the scalpel and carried through to the underlying layer of fascia with a Bovie. The fascia was then incised in the midline and the incision extended laterally with the Olguin scissors. The superior aspect of the fascial incision was then grasped with the Ge clamps, elevated, and the underlying rectus muscles dissected off bluntly. Attention was then turned to the inferior aspect of this incision which in a similar fashion was grasped, tented up with the Ge clamps, and the rectus muscles were dissected off bluntly. The rectus muscles were then in the midline. The peritoneum identified, tented up, and entered sharply with the Metzenbaum scissors. The peritoneal incision was then extended superiorly and inferiorly with good visualization of the bladder. The bladder blade was then inserted and the vesicouterine peritoneum identified, grasped with the pickups, and entered sharply with the Metzenbaum scissors. This incision was then extended laterally and the bladder flap created digitally. The bladder blade was then reinserted and the lower uterine segment incised in the transverse fashion with a scalpel. The uterine incision was then extended laterally with the bandage scissors. At this point, the bladder blade was then removed and the 's head was delivered atraumatically. The nose and mouth were suctioned with the bulb suction and the cord clamped and cut. The was then handed off to the awaiting nurses. The placenta was then removed manually. The uterus was exteriorized and cleared of all clots and debris. The uterine incision was repaired with 1-0 chromic in a running locked fashion. A second layer of the same suture was used to obtain excellent hemostasis. The uterus was then returned to the abdomen. The gutters were cleared of all clots and at this point, the peritoneal muscle closed in an interrupted fashion using 2-0 chromic suture. The fascia was reapproximated with 0 Vicryl in running fashion. The subcutaneous layer was closed with 3-0 Vicryl suture and the skin was closed with absorbable fito called INSORB. The patient tolerated the procedure well. Sponge, lap, needle, and instrument counts were correct X 2. The patient was then taken to the recovery room in stable condition. The patient delivered a live baby boy at 1658. 's 9 at 1 minute and 9 at 5 minutes. The weight of the baby was 8 pounds, 15 ounces.
[2023-01-21] MEDS: Lactated Ringers 1,000 ML IV SCH (19:37)
[2023-01-21] MEDS: PITOCIN 30 UNITS/ LR 500 ML 30 UNITS/500 ML PLAST..BAG IV SCH (19:38)
[2023-01-21] MEDS: NORCO 5/325 MG PO PRN (21:02)
[2023-01-22] MEDS: NORCO 5/325 MG PO PRN ×2 (04:08→08:37)
--- NOTE | 2023-01-22 07:54 | PCM.NOTE ---
Date and Time: 01/22/23 0753 Subjective Assessment: pod 2 sp csection pt resting in bed and doing well able to ambulate and tolerate diet vss afebrile abd; soft dressing intact with no soilage uterus; firm lochia; mild hgb;8.8 a/p sp csection pod 2 dc home today fu office next friday Objective Exam Wound Assessment: Skin/Wound Assessment Wound/Incision Assessment Start: 01/20/23 20:39 Text: Status: Active Freq: Q6H Protocol: Document 01/22/23 04:00 (Rec: 01/22/23 04:16 [id number]) Wound/Incision Assessment Lower Abdomen Wound Type Incision Dressing Status Dry & Intact,Reinforced Drainage Amount None Drainage Odor None/Absent Primary Dressing Non-Adherent Gauze Pads Wound Photo Photo Taken No Comment: na OBJECTIVE DATA Vital Signs: Vital Signs - 24 hr Temp Pulse Resp BP Pulse Ox 01/22/23 00:00 98.1 F 93 H 18 130/64 98 01/21/23 20:00 98.3 F 79 18 114/59 99 01/21/23 14:00 98.1 F 90 18 119/80 01/21/23 09:00 98 01/21/23 08:00 98 Pain Assessment - Last Documented Pain Intensity [Lower 8 Posterior] Pain Intensity 4 Pain Scale Used 0-10 Pain Scale Intake and Output: Intake & Output 01/19/23 01/20/23 01/21/23 01/22/23 11:59 11:59 11:59 11:59 Intake Total 250 2837 6800 2700 Output Total 1000 4256 Balance 250 1837 2544 2700 Weight 107.048 kg 107.048 kg Lab Results: Lab Results-Last 24 Hours 01/21/23 Range/Units 15:52 WBC 10.9 H (4.0-10.5) x10^3/uL RBC 2.95 L (4.1-5.4) x10^6/uL Hgb 8.8 L (12.0-16.0) g/dL Hct 28.2 L (35-47) % MCV 95.6 (78-100) fL MCH 29.8 (26-32) pg MCHC 31.2 L (32-36) g/dL RDW 12.8 (11.5-14.0) % Plt Count 127 L (150-450) x10^3/uL MPV 12.2 H (7.5-11.0) fL Assessment/Plan (1) Arrest of descent, delivered, current hospitalization Current Visit: Yes Status: Acute Code(s): O62.1 - SECONDARY UTERINE INERTIA (2) Status post primary low transverse section Current Visit: Yes Status: Acute Code(s): Z98.891 - HISTORY OF UTERINE SCAR FROM PREVIOUS SURGERY (3) Postoperative anemia Current Visit: Yes Status: Acute Code(s): D64.9 - ANEMIA, UNSPECIFIED
--- NOTE | 2023-01-22 08:02 | PCM.DS ---
Discharge Summary Date of Admission: 01/20/23 09:22 Admitting Physician: SERGIO REZA DO Consults: Consults on Case 01/20/23 15:29 Notify Anesthesia Provider PRN 01/21/23 08:24 Navigation ONCE Primary Care Provider: GUI ABDI DO Allergies Allergies No Known Drug Allergies Allergy (Verified 01/19/23 13:49) Hospital Summary - Hospital Course Hospital Course: pt admitted on jan 19 for thompson induction with the start of oral cytotec at 39 3/7 wks gestation and was noted being 5 cm on jan 20 in am where pitocin was started and iupc and electrode placed. after approximately 7 hours with a dysfunctional pattern and pitocin reaching 20mu it was determined to proceed with a csection secondary to suspected macrosomia. pt subsequently delivered live baby boy via csection and wt was 8-15. during postop period pt was noted to having a hgb of 8.4 however repeat was 8.8 after about 8 hrs. pts incision with dressing intact with no soilage and at this time is stable for discharge. pt was advised to fu next friday for incision check and removal of dressing however was instructed to remove dressing if significant odor coming from dressing. pt given rx of percocet and iron supplementation. all questions answered to her satisfaction. - Vitals & Intake/Output Vital Signs: Vital Signs Temperature 98.1 F 01/22/23 00:00 Pulse Rate 93 H 01/22/23 00:00 Respiratory Rate 18 01/22/23 00:00 Blood Pressure 130/64 01/22/23 00:00 O2 Sat by Pulse Oximetry 98 01/22/23 00:00 Intake & Output: Intake & Output 01/19/23 01/20/23 01/21/23 01/22/23 11:59 11:59 11:59 11:59 Intake Total 250 2837 6800 2700 Output Total 1000 4256 Balance 250 1837 2544 2700 Weight 107.048 kg 107.048 kg - Lab Result Diagrams: 01/21/23 15:52 Lab Results-Last 24 Hrs: Lab Results-Last 24 Hours 01/21/23 Range/Units 15:52 WBC 10.9 H (4.0-10.5) x10^3/uL RBC 2.95 L (4.1-5.4) x10^6/uL Hgb 8.8 L (12.0-16.0) g/dL Hct 28.2 L (35-47) % MCV 95.6 (78-100) fL MCH 29.8 (26-32) pg MCHC 31.2 L (32-36) g/dL RDW 12.8 (11.5-14.0) % Plt Count 127 L (150-450) x10^3/uL MPV 12.2 H (7.5-11.0) fL Micro Results-Entire Visit: Microbiology 01/20/23 11:00 Urine Culture - Preliminary Urine, Catheterized NO GROWTH TO DATE Discharge Exam Wound Assessment: Skin/Wound Assessment Wound/Incision Assessment Start: 01/20/23 20:39 Text: Status: Active Freq: Q6H Protocol: Document 01/22/23 04:00 (Rec: 01/22/23 04:16 [id number]) Wound/Incision Assessment Lower Abdomen Wound Type Incision Dressing Status Dry & Intact,Reinforced Drainage Amount None Drainage Odor None/Absent Primary Dressing Non-Adherent Gauze Pads Wound Photo Photo Taken No Comment: na Final Diagnosis/Problem List - Final Discharge Diagnosis/Problem (1) Arrest of descent, delivered, current hospitalization Current Visit: Yes Status: Acute Code(s): O62.1 - SECONDARY UTERINE INERTIA (2) Status post primary low transverse section Current Visit: Yes Status: Acute Code(s): Z98.891 - HISTORY OF UTERINE SCAR FROM PREVIOUS SURGERY (3) Postoperative anemia Current Visit: Yes Status: Acute Code(s): D64.9 - ANEMIA, UNSPECIFIED - Discharge Disposition: Home, Self-Care Condition: Stable Prescriptions: New Ferrous Sulfate 325 mg [Feosol 325 mg] 325 mg PO BID #60 tablet Oxycodone HCl/Acetaminophen [Percocet 5-325 mg Tablet] 1 each PO Q6H PRN PRN #20 tablet MDD 4 PRN Reason: Moderate To Severe Pain No Action Aspirin 81 gm Chew [Baby Aspirin 81 mg Chew] 81 mg PO DAILY Follow up with: GUI ABDI DO [Primary Care Provider] - SERGIO REZA DO [ACTIVE STAFF] - 01/29/23 (no heavy lifting should fu next friday for dressing removal and incision check should call me for any issues that may arise at anytime )
[2023-01-22] MEDS: FEOSOL 325 MG PO SCH (08:39)
[2023-01-22] MEDS: Docusate Sodium 100 MG PO SCH (08:40)
[2023-01-22] MEDS: ECOTRIN 81 MG PO SCH (08:40)
[2023-01-22 12:22] VITALS: BP 119/76; PULSE 106; TEMP 98.5; O2SAT 99
== END 2023-01-22 15:10 | disposition home or self-care (01) | DRG 788 ==
LOC: OB 09:15 → OBSVTOIN 01-20 09:22
PROVIDERS: ADMIT Obstetrics & Gynecology; ATTEND Obstetrics & Gynecology
PROC: 10D00Z1 Extraction of Products of Conception, Low, Open Approach (ICD-10-PCS; principal; 2023-01-20)
DX: O62.1 Secondary uterine inertia (principal); O66.2 Obstructed labor due to unusually large fetus; Z3A.39 39 weeks gestation of pregnancy; Z37.0 Single live birth; D64.9 Anemia, unspecified; Z20.828 Contact with and (suspected) exposure to other viral communicable diseases
CPT/HCPCS: 36415; 62322; 64488; 76937; 76942; 80307; 85025; 85027; 85610; 85730; 86850; 86900; 86901; 87086; 90471; 90715; 94799; 99140; G0378; G0379; J0456; J0690; J1650; J2274; J2300; J2371; J2590; J3010; L0625; A9270-GY

== ENCOUNTER 2023-11-13 01:19 | Emergency (ER) | payer MEDICAID, OTHER ==
[2023-11-13 01:35] VITALS: TEMP 98.9; O2SAT 97
[2023-11-13 01:49] LABS: Appearance Clear (Clear); Bacteria Few /HPF (None Seen); Bilirubin Negative (Negative); Blood Negative (Negative); Epithelial Cells None Seen /HPF (None Seen); Glucose, Urine Negative (Negative); Hyaline Casts NONE SEEN /LPF (0-2); Ketones Negative (Negative); Leukocyte Esterase Negative (Negative); Nitrite Negative (Negative); Ph 5.5 (4.6-8.0); Protein,Urine Dip Negative (Negative); Specific Gravity >=1.030 (1.005-1.030); WBC 0-2 /HPF (0-5)
[2023-11-13 01:50] LABS: HCG URINE TEST NEGATIVE (NEGATIVE)
[2023-11-13 01:51] LABS: ADD URINE CULTURE? NO (NO); RBC 0-2 /HPF (0-5)
[2023-11-13 02:02] LABS: Group A Strep NOT DETECTED (NEGATIVE)
--- NOTE | 2023-11-13 02:08 | ERPHSYRPT ---
- History of Present Illness Time Seen by Provider: 11/13/23 02:06 Source: patient Exam Limitations: no limitations Patient Subjective Stated Complaint: headche x1.5 week, pt unable to get into PCP until early december Triage Nursing Assessment: pt ambulatory to bed by self with steady gait, pt alert and oriented x3, skin pwd, pt holding top of head, rating headache 5/10, pt has not taken any pain medication for 2 days, afebrile Physician History: 23-year-old female presents to our ED for evaluation of a headache that she has been experiencing for 1.5 weeks. Patient states headaches have been constant. Decreased oral intake. Patient has pressure in her temples. No trauma no fever. Patient is slightly nauseous. Patient rates her pain 5 out of 10. Patient unable to get comfortable. She also added that she has been experiencing muscle cramping. Patient denies a history of the same. Patient states she is otherwise healthy. She voices no other complaints or concerns at this time. Portions of this note were created with voice recognition technology. There may be grammatical, spelling, punctuation or sound alike errors Timing/Duration: week(s) (1.5 weeks) Severity: moderate Modifying Factors: Improves With: nothing Associated Symptoms: denies symptoms Allergies/Adverse Reactions: No Known Drug Allergies Allergy (Verified 11/13/23 01:28) Home Medications: No Reportable Medications [No Reported Medications] 11/13/23 [History] Hx Tetanus, Diphtheria Vaccination/Date Given: Yes Hx Influenza Vaccination/Date Given: No Hx Pneumococcal Vaccination/Date Given: No Travel Risk - International Travel Have you traveled outside of the country in past 3 weeks: No - Emerging Infectious Disease Are you exhibiting symptoms associated with any current EIDs: Yes Symptoms: Headaches/Body Aches/ - Review of Systems Constitutional: No Symptoms, No Fever, No Chills Eyes: No Symptoms Ears, Nose, & Throat: No Symptoms Respiratory: No Symptoms, No Cough, No Dyspnea Cardiac: No Symptoms, No Chest Pain, No Edema, No Syncope Abdominal/Gastrointestinal: No Symptoms, No Abdominal Pain, No Nausea, No Vomiting, No Diarrhea Genitourinary Symptoms: No Symptoms, No Dysuria Musculoskeletal: No Symptoms, No Back Pain, No Neck Pain Skin: No Symptoms, No Rash Neurological: No Symptoms, No Dizziness, No Focal Weakness, No Sensory Changes Psychological: No Symptoms Endocrine: No Symptoms Hematologic/Lymphatic: No Symptoms Immunological/Allergic: No Symptoms All Other Systems: Reviewed and Negative - Past Medical History Pertinent Past Medical History: Yes Neurological History: No Pertinent History ENT History: No Pertinent History Cardiac History: No Pertinent History Respiratory History: No Pertinent History Endocrine Medical History: No Pertinent History Musculoskeletal History: No Pertinent History GI Medical History: Hemorrhoids History: No Pertinent History Psycho-Social History: Anxiety, Bipolar, Depression Female Reproductive Disorders: No Pertinent History - Past Surgical History Past Surgical History: Yes Neuro Surgical History: No Pertinent History Cardiac: No Pertinent History Respiratory: No Pertinent History Gastrointestinal: No Pertinent History Genitourinary: No Pertinent History Musculoskeletal: No Pertinent History Female Surgical History: Section - Female History Hx Last Menstrual Period: 8 months ago Hx Now: No - Social History Smoking Status: Former smoker How long have you smoked: 5 years Exposure to second hand smoke: No Drug Use: none Patient Lives Alone: No - Social Determinants of Health Will the patient participate in the screening: Declined to provide - Nursing Vital Signs Nursing Vital Signs: Initial Vital Signs Temperature 98.9 F 11/13/23 01:29 Pulse Rate 115 H 11/13/23 01:29 Respiratory Rate 18 11/13/23 01:29 Blood Pressure 134/60 11/13/23 01:29 O2 Sat by Pulse Oximetry 97 11/13/23 01:29 Pain Scale Pain Intensity 4 - Physical Exam General Appearance: no apparent distress, alert Eye Exam: PERRL/EOMI, eyes nml inspection Ears, Nose, Throat Exam: normal ENT inspection, TMs normal, pharynx normal, moist mucous membranes Neck Exam: normal inspection, non-tender, supple, full range of motion Respiratory Exam: normal breath sounds, lungs clear, airway intact, No respiratory distress Cardiovascular Exam: regular rate/rhythm, normal heart sounds, normal peripheral pulses Gastrointestinal/Abdomen Exam: soft, normal bowel sounds, No tenderness, No mass Back Exam: normal inspection, normal range of motion, No CVA tenderness, No vertebral tenderness Extremity Exam: normal inspection, normal range of motion, pelvis stable Neurologic Exam: alert, oriented x 3, cooperative, normal mood/affect, sensation nml, No motor deficits Skin Exam: normal color, warm, dry, No rash Lymphatic Exam: No adenopathy SpO2 Interpretation: normal SpO2: 97 O2 Delivery: Room Air - Course Nursing assessment & vital signs reviewed: Yes - CT Exams Head CT Interpretation: Tele-radiologist Report (No acute findings) Ordered Tests: Active Orders 24 hr Category Date Time Status IV Insertion STAT Care 11/13/23 02:03 Active HEAD WITHOUT CONTRAST [CT] Stat Exams 11/13/23 02:08 Completed CBC W DIFF Stat Lab 11/13/23 02:17 Completed CMP Stat Lab 11/13/23 02:17 Completed HCG QUALITATIVE, URINE Stat Lab 11/13/23 01:29 Completed UA W/RFX UR CULTURE Stat Lab 11/13/23 01:29 Completed Medication Summary Discontinued Medications Generic Name Dose Route Start Last Admin Trade Name Freq PRN Reason Stop Dose Admin Diphenhydramine HCl 25 mg 11/13/23 02:10 11/13/23 02:35 Diphenhydramine Hcl 50 Mg/Ml Vial IV 11/13/23 02:11 25 mg STAT ONE Administration Diphenhydramine HCl Confirm 11/13/23 02:18 Diphenhydramine Hcl 50 Mg/Ml Vial Administered 11/13/23 02:19 Dose 50 mg .ROUTE .STK-MED ONE Sodium Chloride 1,000 mls @ 999 mls/hr 11/13/23 02:03 11/13/23 02:33 Sodium Chloride 0.9% 1000 Ml IV 11/13/23 03:03 999 mls/hr .Q1H1M STA Administration Sodium Chloride Confirm 11/13/23 02:18 Sodium Chloride 0.9% 1000 Ml Administered 11/13/23 02:19 Dose 1,000 mls @ ud .ROUTE .STK-MED ONE Ketorolac Tromethamine 30 mg 11/13/23 02:03 11/13/23 02:34 Ketorolac Tromethamine 30 Mg/Ml Inj IV 11/13/23 02:04 30 mg STAT ONE Administration Ketorolac Tromethamine Confirm 11/13/23 02:18 Ketorolac Tromethamine 30 Mg/Ml Inj Administered 11/13/23 02:19 Dose 30 mg .ROUTE .STK-MED ONE Prochlorperazine Edisylate 10 mg 11/13/23 02:06 11/13/23 02:35 Prochlorperazine Edisylate 10 Mg/2 Ml Vial IV 11/13/23 02:07 10 mg STAT ONE Administration Prochlorperazine Edisylate Confirm 11/13/23 02:18 Prochlorperazine Edisylate 10 Mg/2 Ml Vial Administered 11/13/23 02:19 Dose 10 mg .ROUTE .[facility]-MED ONE Lab/Rad Data: Laboratory Result Diagrams 11/13/23 02:17 11/13/23 02:17 Laboratory Results 11/13/23 11/13/23 11/13/23 Range/Units 02:17 02:17 01:30 WBC 6.4 (3.98-10.04) x10^3/uL RBC 4.38 (3.93-5.22) x10^6/uL Hgb 11.9 (11.2-15.7) g/dL Hct 36.8 (34.1-44.9) % MCV 84.0 (79.4-94.8) fL MCH 27.2 (25.6-32.2) pg MCHC 32.3 (32.2-35.5) g/dL RDW 11.9 (11.7-14.4) % Plt Count 194 (182-369) x10^3/uL MPV 11.6 (9.4-12.3) fL Gran % 51.7 (34.0-71.1) % Immature Gran % (Auto) 0.5 H (0.001-0.429) % Nucleat RBC Rel Count 0.0 (0.00-0.2) % Eos # (Auto) 0.09 (0.04-0.36) x10^3/uL Immature Gran # (Auto) 0.03 (0.001-0.031) x10^3u/L Absolute Lymphs (auto) 2.27 (1.18-3.74) x10^3/uL Absolute Monos (auto) 0.69 (0.24-0.86) x10^3/uL Absolute Nucleated RBC 0.00 (0.00-0.012) x10^3u/L Lymphocytes % 35.2 (19.3-51.7) % Monocytes % 10.7 (4.7-12.5) % Eosinophils % 1.4 (0.7-5.8) % Basophils % 0.5 (0.1-1.2) % Absolute Granulocytes 3.33 (1.56-6.13) x10^3/uL Basophils # 0.03 (0.01-0.08) x10^3/uL Sodium 138 (135-145) mmol/L Potassium 4.0 (3.5-5.1) mmol/L Chloride 104 (98-107) mmol/L Carbon Dioxide 26 (22-30) mmol/L Anion Gap 12.1 (5-15) MEQ/L BUN 21 H (7-17) mg/dL Creatinine 0.59 (0.52-1.04) mg/dL Estimated GFR 128.2 ML/MIN Glucose 113 H (74-106) mg/dL Calcium 9.3 (8.4-10.2) mg/dL Total Bilirubin 0.20 (0.2-1.3) mg/dL AST 24 (14-36) U/L ALT 23 (0-35) U/L Alkaline Phosphatase 61 (38-126) U/L Serum Total Protein 6.8 (6.3-8.2) g/dL Albumin 4.0 (3.5-5.0) g/dL Urine Color (Yellow) Urine Appearance (Clear) Urine pH (4.6-8.0) Ur Specific [place] (1.005-1.030) Urine Protein (Negative) Urine Glucose (UA) (Negative) mg/dL Urine Ketones (Negative) Urine Blood (Negative) Urine Nitrite (Negative) Urine Bilirubin (Negative) Urine Urobilinogen (0.2) mg/dL Ur Leukocyte Esterase (Negative) U Hyaline Cast (Auto) (0-2) /LPF Urine Microscopic RBC (0-5) /HPF Urine Microscopic WBC (0-5) /HPF Ur Epithelial Cells (None Seen) /HPF Urine Bacteria (None Seen) /HPF Urine Culture Reflexed (NO) Urine HCG, Qual (NEGATIVE) Influenza Type A Ag NEGATIVE (NEGATIVE) Influenza Type B Ag NEGATIVE (NEGATIVE) RSV (PCR) NEGATIVE (NEGATIVE) SARS-CoV-2 (PCR) NEGATIVE (NEGATIVE) Group A Strep Antibody NOT DETECTED (NEGATIVE) 11/13/23 11/13/23 Range/Units 01:29 01:29 WBC (3.98-10.04) x10^3/uL RBC (3.93-5.22) x10^6/uL Hgb (11.2-15.7) g/dL Hct (34.1-44.9) % MCV (79.4-94.8) fL MCH (25.6-32.2) pg MCHC (32.2-35.5) g/dL RDW (11.7-14.4) % Plt Count (182-369) x10^3/uL MPV (9.4-12.3) fL Gran % (34.0-71.1) % Immature Gran % (Auto) (0.001-0.429) % Nucleat RBC Rel Count (0.00-0.2) % Eos # (Auto) (0.04-0.36) x10^3/uL Immature Gran # (Auto) (0.001-0.031) x10^3u/L Absolute Lymphs (auto) (1.18-3.74) x10^3/uL Absolute Monos (auto) (0.24-0.86) x10^3/uL Absolute Nucleated RBC (0.00-0.012) x10^3u/L Lymphocytes % (19.3-51.7) % Monocytes % (4.7-12.5) % Eosinophils % (0.7-5.8) % Basophils % (0.1-1.2) % Absolute Granulocytes (1.56-6.13) x10^3/uL Basophils # (0.01-0.08) x10^3/uL Sodium (135-145) mmol/L Potassium (3.5-5.1) mmol/L Chloride (98-107) mmol/L Carbon Dioxide (22-30) mmol/L Anion Gap (5-15) MEQ/L BUN (7-17) mg/dL Creatinine (0.52-1.04) mg/dL Estimated GFR ML/MIN Glucose (74-106) mg/dL Calcium (8.4-10.2) mg/dL Total Bilirubin (0.2-1.3) mg/dL AST (14-36) U/L ALT (0-35) U/L Alkaline Phosphatase (38-126) U/L Serum Total Protein (6.3-8.2) g/dL Albumin (3.5-5.0) g/dL Urine Color Yellow (Yellow) Urine Appearance Clear (Clear) Urine pH 5.5 (4.6-8.0) Ur Specific [place] >=1.030 A (1.005-1.030) Urine Protein Negative (Negative) Urine Glucose (UA) Negative (Negative) mg/dL Urine Ketones Negative (Negative) Urine Blood Negative (Negative) Urine Nitrite Negative (Negative) Urine Bilirubin Negative (Negative) Urine Urobilinogen 1.0 A (0.2) mg/dL Ur Leukocyte Esterase Negative (Negative) U Hyaline Cast (Auto) NONE SEEN (0-2) /LPF Urine Microscopic RBC 0-2 (0-5) /HPF Urine Microscopic WBC 0-2 (0-5) /HPF Ur Epithelial Cells None Seen (None Seen) /HPF Urine Bacteria Few A (None Seen) /HPF Urine Culture Reflexed NO (NO) Urine HCG, Qual NEGATIVE (NEGATIVE) Influenza Type A Ag (NEGATIVE) Influenza Type B Ag (NEGATIVE) RSV (PCR) (NEGATIVE) SARS-CoV-2 (PCR) (NEGATIVE) Group A Strep Antibody (NEGATIVE) - Progress Progress: improved Progress Note: 23-year-old female presents to emergency department for evaluation of a migraine headache. Patient also describes muscle cramping. Physical exam essentially n onremarkable. However patient's headache has been ongoing for approximately 1.5 weeks. Patient states it was progressively worsening. CT head ordered. No acute findings observed on CAT scan. Laboratory workup suggests dehydration. BUN/creatinine ratio elevated. Urinalysis negative for UTI however specific gravity elevated as well consistent with dehydration. Patient received a liter of IV fluids. Patient received Compazine and Benadryl as well. Patient reassessed. Headache resolved. Patient requesting discharge. She voices no other complaints or concerns at this time. Patient will be discharged home. She agrees to follow-up with her primary care doctor within 48 hours for reev aluation. Portions of this note were created with voice recognition technology. There may be grammatical, spelling, punctuation or sound alike errors Complexity problem addressed is moderate acute complicated. No critical care time. Complex of data reviewed and analyzed is moderate. Test ordered chest reviewed results analyzed and correlated clinically with history and physical exam. Risk of complication and or risk of morbidity/mortality patient management is low. Vital stable. Time spent to discharge patient approximately 20 minutes. Plan of care established for shared decision making. No social determinants of health present impede follow-up. Portions of this note were created with voice recognition technology. There may be grammatical, spelling, punctuation or sound alike errors 11/13/23 03:20 Counseled pt/family regarding: lab results, diagnosis, need for follow-up, rad results - Departure Departure Disposition: Home Clinical Impression: Dehydration, Migraine Condition: Stable Critical Care Time: No Referrals: GUI ABDI DO [Primary Care Provider] - Follow up/PCP as directed Instructions: Migraine in adults Additional Instructions: Discharge/Care Plan CARLTON NIXON was seen on 11/13/23 in the Emergency Room. The patient was counseled regarding Diagnosis,Lab results, Imaging studies, need for follow up and when to return to the Emergency Room. Prescriptions given: Discharge Note I have spoken with the patient and/or caregivers. I have explained the patient's condition, diagnosis and treatment plan based on the information available to me at this time. I have answered the patient's and/or caregiver's questions and addressed any concerns. The patient and/or caregivers have as good understanding of the patient's diagnosis, condition and treatment plan as can be expected at this point. The vital signs have been stable. The patient's condition is stable and appropriate for discharge from the emergency department. The patient will pursue further outpatient evaluation with the primary care physician or other designated or consulting physician as outlined in the discharge instructions. The patient and/or caregivers are agreeable to this plan of care and follow-up instructions have been explained in detail. The patient and/or caregivers have received these instruction. The patient/and or caregivers are aware that any significant change in condition or worsening of symptoms should prompt an immediate return to this or the closest emergency department or call 911.
[2023-11-13] MEDS ORDERED: TORAdol 30 mg Injection ONE (02:18)
[2023-11-13] MEDS ORDERED: BENADRYL 50 MG/ML ONE (02:18)
[2023-11-13] MEDS ORDERED: Sodium Chloride 0.9% 1000 ML 1,000 ML ONE (02:18)
[2023-11-13] MEDS ORDERED: Compazine 10 MG/2 ML ONE (02:18)
[2023-11-13 02:20] LABS: INFLUENZA A NEGATIVE (NEGATIVE); INFLUENZA B NEGATIVE (NEGATIVE); RESPIRATORY SYNCTIAL VIRUS NEGATIVE (NEGATIVE); SARS-CoV-2 Xpert Express NEGATIVE (NEGATIVE)
[2023-11-13 02:21] LABS: Absolute Neutrophil Ct (ANC) 3.33 x10^3/uL (1.56-6.13); BASOPHIL % 0.5 % (0.1-1.2); Basophil (Absolute #) 0.03 x10^3/uL (0.01-0.08); Eosinophil % 1.4 % (0.7-5.8); Eosinophil (Absolute #) 0.09 x10^3/uL (0.04-0.36); Hematocrit 36.8 % (34.1-44.9); Hemoglobin 11.9 g/dL (11.2-15.7); IMMATURE GRAN # 0.03 x10^3u/L (0.001-0.031); IMMATURE GRAN % 0.5 % (0.001-0.429); Lymphocyte (Absolute #) 2.27 x10^3/uL (1.18-3.74); Lymphocytes % 35.2 % (19.3-51.7); Mean Corpuscular Hemoglobin 27.2 pg (25.6-32.2); Mean Corpuscular Hgb Concent. 32.3 g/dL (32.2-35.5); Mean Platelet Volume 11.6 fL (9.4-12.3); Monocyte (Absolute #) 0.69 x10^3/uL (0.24-0.86); Monocytes % 10.7 % (4.7-12.5); Neutrophil % 51.7 % (34.0-71.1); Platelet Count 194 x10^3/uL (182-369); Red Blood Count 4.38 x10^6/uL (3.93-5.22); Red Cell Distribution Width 11.9 % (11.7-14.4); White Blood Count 6.4 x10^3/uL (3.98-10.04)
[2023-11-13] MEDS: Sodium Chloride 0.9% 1000 ML 1,000 ML IV STA (02:33)
[2023-11-13 02:34] LABS: ANION GAP 12.1 MEQ/L (5-15); BILIRUBIN,TOTAL 0.2 mg/dL (0.2-1.3); Calcium 9.3 mg/dL (8.4-10.2); Creatinine 1 0.59 mg/dL (0.52-1.04); EST GLOMERULAR FILTRATION RATE 128.2 ML/MIN; Total Protein 6.8 g/dL (6.3-8.2)
[2023-11-13] MEDS: TORAdol 30 mg Injection IV ONE (02:34)
[2023-11-13] MEDS: BENADRYL 50 MG/ML IV ONE (02:35)
[2023-11-13] MEDS: Compazine 10 MG/2 ML IV ONE (02:35)
[2023-11-13 03:03] VITALS: BP 115/94; PULSE 91; RESP 19
--- NOTE | 2023-11-13 03:15 | XRAY ---
CLINICAL HISTORY: headache COMPARISON: None. TECHNIQUE: An axial non-contrast CT scan of the brain was performed from the skull base to the high parietal region. One of the following dose reduction techniques was utilized for this exam: Automated exposure control, adjustment of the mA and/or kV according to patient size, and use of iterative reconstruction. CTDI: 53.92mGy; DLP:1016.25mGy-cm. FINDINGS: Brain Parenchyma: Normal attenuation of the cerebral hemispheres, cerebellum, and brainstem. No evidence of acute infarct, hemorrhage, or mass effect. No abnormal areas of hypo- or hyperattenuation. Ventricular System: Ventricles are normal in size and configuration. No evidence of hydrocephalus or ventricular enlargement. Subarachnoid Spaces: Normal sulci and cisterns. No evidence of subarachnoid hemorrhage or extra-axial fluid collections. Cerebellum and Brainstem: Normal size and signal. No masses, lesions, or areas of abnormal signal. Orbits: Normal appearance of the globes, optic nerves, and extraocular muscles. No evidence of orbital masses or abnormal signals. Sinuses: Clear paranasal sinuses. No evidence of sinusitis or mucosal thickening. Mastoid Air Cells: Clear mastoid air cells. No evidence of mastoiditis. Skull and Meninges: Normal skull morphology. No evidence of meningeal thickening. IMPRESSION: Normal CT of the head without contrast. Electronically Signed by: Serge Boone MD. (11/13/2023 03:10:55 EDT)
== END 2023-11-13 03:30 | disposition home or self-care (01) ==
LOC: ED 01:19
DX: E86.0 Dehydration (principal); G43.909 Migraine, unspecified, not intractable, without status migrainosus; R11.0 Nausea
CPT/HCPCS: 0241U; 36000; 36415; 70450; 80053; 81001; 81025; 85025; 87651; 96374; 96375; 99284; J1200; J1885